=== PATIENT | female | born 1955 | race Caucasian/White ===

== ENCOUNTER 2017-09-24 19:01 | Inpatient (IN) | payer MEDICARE, MEDICAID ==
--- NOTE | 2017-09-24 19:47 | RAD ---
SINGLE VIEW OF THE CHEST 09/24/17 COMPARISON: 09/22/14 HISTORY: Acute onset of dyspnea and low oxygen saturation. FINDINGS: Single view of the chest shows a normal sized cardiomediastinal silhouette. Increased interstitial megan ng markings are present. There is superimposed air space opacities which appear to have developed sin ce the prior exam. No pleural effusion is seen. IMPRESSION: Chronic interstitial lung disease with superimposed air space opacities. This could represent edema o r an infectious process. POS: [facility]
[2017-09-24 19:51] LABS: #Eosinphils 0.2 thou/uL (0.0-0.7); #Lymphocytes 2.3 thou/uL (1.20-3.40); #Monocytes 0.3 thou/uL (0.11-0.59); #Neutrophils 8.2 thou/uL (1.40-6.50); %Basophils 0.4 % (0.0-1.0); %Eosinophils 1.7 % (0.0-10.0); %Lymphocytes 20.9 % (21.0-51.0); Hemoglobin 13.4 g/dL (12.0-16.0); Mean Corpuscular Hemoglobin 27.8 pg (27.0-31.0); Mean Corpuscular Volume 84.4 fl (81.0-99.0); Mean Platelet Volume 6.5 fL (7.4-10.4); Platelet Count 367 thou/uL (130-400); RBC Distribution Width 14.1 % (11.5-14.5); Red Blood Cell (RBC) Count 4.83 mill/uL (4.20-5.40); White Blood Cell (WBC) Count 11.1 thou/uL (4.8-10.8)
[2017-09-24 19:54] LABS: Bilirubin Negative (Negative); Blood, Urine Moderate (Negative); Clarity TURBID (Clear); Glucose, Urine (Dipstick) >=1000 mg/dL (Negative); Leukocyte Moderate (Negative); Nitrite Positive (Negative); Protein, Urine (Dipstick) 300 mg/dL (Neg-Trace); Specific Gravity, Urine 1.026 (1.002-1.036); Urobilinogen 0.2 mg/dL (0.2-1.0); pH, Urine 5.5 (5.0-9.0)
[2017-09-24 19:56] LABS: Bacteria/HPF 4+ HPF (None Seen); Hyaline Casts/LPF 4-6 HYALINE CAST LPF (0-3 Hyaline); Pathc Cast-AUWi Flag 1.14 (0-2.49); Squamous Epithelial 0-3 HPF (0-3)
[2017-09-24 19:58] LABS: Yeast-AUWi Flag 1560.6 (0-25.0)
[2017-09-24 20:03] LABS: CO2 Tension 39.3 mmHg (35.0-45.0); pH, Arterial 7.34 (7.35-7.45)
[2017-09-24 20:04] LABS: Actual Bicarbonate (HCO3a) 20.8 mEq/L (22-26); Base Excess (BEa) -4.5 mEq/L (0 (+/-) 2.5); Hematocrit-ABG 37.1 % (36.0-47.0); Hemoglobin (Hb) 11.1 g/dL (12.0-16.0)
[2017-09-24] MEDS ORDERED: Acetaminophen 500 MG TAB ONE (20:04)
[2017-09-24] MEDS ORDERED: Insulin Regular 300 UNITS/3 ML VIAL ONE ×2 (20:04→20:05)
[2017-09-24 20:05] LABS: Analyzer IN Cardio ER; Calcium, Ionized 1.2 mmol/L (1.12-1.30); Puncture Site RR
[2017-09-24 20:06] LABS: Yeast-All Forms 4+ HPF (None Seen)
[2017-09-24 20:12] LABS: ALT (SGPT) 17 U/L (8-55); AST (SGOT) 20 U/L (5-34); Albumin 3.4 g/dL (3.4-4.8); Alkaline Phosphatase 123 U/L (40-150); Anion Gap 22 mmol/L (10-20); BUN (Urea Nitrogen) 29 mg/dL (9.8-20.1); Bilirubin, Total 0.2 mg/dL (0.2-1.2); Calc. Creatinine Clearance 0 mL/min (70-130); Calcium 9.4 mg/dL (7.8-10.44); Carbon Dioxide 15 mmol/L (23-31); Chloride 102 mmol/L (98-107); Estimated GFR-MDRD 29; Globulin 4.8 g/dL (2.4-3.5); Glucose 423 mg/dL (80-115); Potassium 4.5 mmol/L (3.5-5.1); Protein, Total 8.2 g/dL (6.0-8.3); Sodium 134 mmol/L (136-145)
[2017-09-24 20:22] LABS: Troponin I 0.219 ng/mL (< 0.028)
[2017-09-24 20:26] LABS: CKMB 10.9 ng/mL (0-6.6)
[2017-09-24] MEDS ORDERED: Piperacillin/Tazobactam 4.5 GM in Sodium Chloride 0.9% 100 ML IVPB SCH (20:45)
[2017-09-24 23:01] LABS: Troponin I 1.878 ng/mL (< 0.028)
[2017-09-24] MEDS ORDERED: Enoxaparin Sodium 100 MG/ML SYRINGE ONE (23:02)
[2017-09-24 23:41] LABS: Lactic Acid 2.5 mmol/L (0.5-2.2)
[2017-09-25] MEDS ORDERED: Acetaminophen 325 MG TAB PO PRN ×3 (00:51→09:26)
[2017-09-25] MEDS ORDERED: Ondansetron HCl/PF 4 MG/2 ML Vial IVP PRN (00:51)
[2017-09-25] MEDS ORDERED: Ondansetron ODT 4 MG TAB SL PRN (00:51)
[2017-09-25 02:31] LABS: Troponin I 4.181 ng/mL (< 0.028)
[2017-09-25] MEDS ORDERED: Dextrose 5% in Water 1,000 ML IV PRN (09:20)
[2017-09-25] MEDS ORDERED: Dextrose 50% Abboject 50 ML SYRINGE IVP PRN (09:20)
[2017-09-25] MEDS ORDERED: Ketorolac Tromethamine 30 MG/ML VIAL IVP PRN (09:23)
[2017-09-25] MEDS ORDERED: Enoxaparin Sodium 100 MG/ML SYRINGE SC SCH (10:00)
[2017-09-25 10:37] LABS: Troponin I 4.059 ng/mL (< 0.028)
[2017-09-25] MEDS: cefTRIAXone\\ROCEPHIN 1 GM, Syringe 0.4 ML in Sterile Water 9.6 ML SLOW IVP SCH (10:44)
[2017-09-25] MEDS ORDERED: Gabapentin 300 MG CAP PO SCH (11:15)
--- NOTE | 2017-09-25 12:04 | HP ---
HANNAH Smyth dictating for Francisco J Lopez M.D. DATE OF ADMISSION: 09/25/2017 REASON FOR ADMISSION: Shortness of breath. HISTORY OF PRESENT ILLNESS: This is a pleasant 62-year-old female, who is a resident at [facility] with a 24-hour history of having increasing shortness of breath. She also had retrosternal ch est tightness with no associated nausea, vomiting, or diaphoresis. The nurse contacted me when she b sandy having tingling down her arms and hypoxia with O2 sat of 80, having promptly sent her to the [facility] room where she was found to have a possible pulmonary edema and elevated cardiac markers sugge stive of a MO. The patient was appropriately given Lovenox and placed on oxygen and given aspirin. She was also placed on BiPAP. Now, the patient is in CCU from overflow from [facility], and she is on oxyg en and appears to be hemodynamically stable, in no acute distress. She denies any chest, arm, or back pain. She also denies any PND, orthopnea, or palpitations. PAST MEDICAL HISTORY: 1. GERD. 2. Hypertension. 3. IDDM. 4. Hyperlipidemia. 5. Hypertriglyceridemia. 6. Osteoporosis. 7. Sciatica. 8. History of chronic urinary tract infection. 9. History of urosepsis. 10. History of DVT of the right thigh. 11. The patient was seen by Dr. New in 2017 where at that time she underwent a stress test that was unremarkable. She also had an echocardiogram at that time, which showed her EF was 60%-65% with mil d TR and trace MR. PAST SURGICAL HISTORY: 1. Nasal surgery in the past. 2. Status post hysterectomy. 3. Tubal ligation. 4. Osteoporotic fracture of the back. 5. Nasal surgery was for persistent epistaxis. ALLERGIES: CODEINE and HYDROCODONE. MEDICATIONS: Currently unknown. SOCIAL HISTORY: She does not smoke or drink alcohol. She lives in a fpc. FAMILY HISTORY: Noncontributory. REVIEW OF SYSTEMS: General: Admits to weakness and fatigue. No fever or chills. HEENT: No diplop ia, amaurosis fugax, tinnitus, sore throat, or hoarseness. Cardiovascular: See history of present i llness. Pulmonary: See present illness. Gastrointestinal: No GI bleed, constipation, diarrhea. G enitourinary: Does have dysuria, no nocturia, oliguria, or polyuria. Endocrine: No polyphagia, polydipsia, or heat or cold intolerance. Musculoskeletal: Admits to arth ralgias. No lupus or myopathy. Neurologic: No history of TIA or seizure. All systems are negative . PHYSICAL EXAMINATION GENERAL APPEARANCE: This is a pleasant female who appears to be in no acute distress. VITAL SIGNS: Her blood pressure is 130/70, pulse 80, respirations 20. She is afebrile. NECK: Supple with no increased JVP or carotid bruit. Carotid had good upstroke with no thyromegaly. COR: Regular rate and rhythm. CHEST: Symmetrical with a few crackles and wheezing. ABDOMEN: Soft, nontender with normoactive bowel sounds. No bruit or organomegaly. EXTREMITIES: Trace edema. She had palpable pedal pulses. SKIN: There is no evidence of ulcer, lesion, or rash. NEURO: She is awake, alert, and oriented to person, place, and time. LABORATORY DATA: Chest x-ray showed chronic interstitial lung disease with possible edema or infecti ous process. Her urine is positive for UTI. She was negative for flu. Her white blood cells 11.81, her H and H 13.4 and 40.8, her platelets is 367. Her first troponin was 1.878, her second was 4.181 . Her BNP was 117.8. Her blood sugar was 369. Her EKG showed ST abnormality. ASSESSMENT: 1. Elevated cardiac markers with abnormal EKG suggestive of myocardial infarction. 2. Urinary tract infection. 3. Possible pneumonia. 4. Chronic urinary tract infection. 5. Hypertension. 6. Diabetes. 7. Lupus. 8. Multiple medical problems. PLAN: 1. Cardiology has already been asked to see the patient in consultation. We will also repeat the ec hocardiogram. 2. We will keep n.p.o. 3. We will continue aspirin and Lovenox. 4. We will make sure urine C and S was done. 5. We will give Toradol x1 for pain. 6. We will continue Zofran and Tylenol. 7. We will check blood sugars a.c. and at bedtime and use sliding scale insulin per protocol. 8. We will begin Rocephin. 9. We will follow up with a CBC, CMP, and chest x-ray in the morning. The patient verbalized unders tanding and all questions answered to her satisfaction.
--- NOTE | 2017-09-25 12:24 | CON ---
DATE OF CONSULTATION: 09/25/2017 SERVICE: Pulmonary Medicine. REASON FOR CONSULTATION: Respiratory failure ICU patient. HISTORY OF PRESENT ILLNESS: The patient is a 62-year-old white female with past medical history significant for lupus and debility. She has osteoporosis and has multiple fractures associated with that, which keeps her nearly at bed- bound state. At baseline, she is able to walk around her room and uses a wheelchair for anything that is longer. In her usual state of health, she had a 1-day onset of increasing chest discomfort and shortness of breath. She specifically did not wake up with this in the middle of the night. She denies any orthopnea or paroxysmal nocturnal dyspnea. She was brought to the emergency department where she had a fever. She was identified as having an infiltrate in the lung. Antibiotics were initiated. She has been off ever since about 2 weeks ago when she had the flu. She was recovering from that slowly. She feels much improved since she has been here. In the Emergency Department, she was hypoxemic. She was placed on BiPAP but as soon as she got to the ICU, this was discontinued. She was placed on room air and she is maintaining her saturations beautifully. She appears to be cool, calm and collected. She is wide awake and has no apparent distress respiratory or otherwise. PAST MEDICAL HISTORY: 1. Lupus. 2. History of DVT of the right thigh. 3. Gastroesophageal reflux disease. 4. Hypertension. 5. Dyslipidemia. 6. Type 2 diabetes mellitus, insulin-dependent. 7. Osteoporosis. 8. Sciatic discomfort. PAST SURGICAL history: 1. Nasal surgery. 2. Hysterectomy. 3. Tubal ligation. SOCIAL HISTORY: Negative for alcohol, tobacco or illicit drug use. She currently lives in a nursing facility. She has no exposures to chemicals, dust asbestos or tuberculosis. FAMILY HISTORY: Noncontributory. ALLERGIES: CODEINE/HYDROCODONE makes her have nausea and vomiting. MEDICATIONS: List of inpatient medications were reviewed. Multiple updates were made at this time. REVIEW OF SYSTEMS: General, head, ears, eyes, nose, throat, cardiovascular, respiratory, GI, , musculoskeletal, neurologic and skin is negative except as mentioned in the HPI. PHYSICAL EXAMINATION: VITAL SIGNS: Afebrile, pulse 94, blood pressure 156/85, respirations 23, saturation 97% on room air. GENERAL: The patient is awake and alert, in no apparent distress. LUNGS: Decent air entry. There is no prolonged expiratory phase or wheezing present. Rhonchi are there, but cleared with cough. HEART: Normal rate, regular. ABDOMEN: Soft, nontender, nondistended. Bowel sounds are positive. MUSCULOSKELETAL: No cyanosis or clubbing. No pitting in the bilateral lower extremities. NEUROLOGIC: Grossly nonfocal. LABORATORY DATA: WBC 11.1, hemoglobin 13.4, platelets 367,000. PH of 7.34, pCO2 of 39, pO2 of 71. She is on 30% FiO2 at that time. Troponin has increased from 0.2 up to 4.2. Lactate is down trending to 2.5. Glucose is elevated in the 300s. BNP is marginally elevated. Creatinine is 1.74, which is slightly above baseline. BUN is 29. Basic metabolic profile is otherwise unremarkable. Liver function studies are negative. Urinalysis is consistent with possible urinary tract infection with positive leukocyte esterase and nitrites. Urine culture is growing E. coli. This has a resistance profile, but significant resistance profile that is sensitive to Zosyn and cephalosporins. Blood cultures x2 remain negative. Influenza A and B is currently negative. IMAGING: Chest x-ray demonstrates an interstitial disease with superimposed airspace opacities may represent edema versus other infectious process. I looked back at chest x-ray from 2015 and there were some subtle interstitial changes that were present at that time. In addition, there was slight hyperexpansion of the bilateral lung smith. ASSESSMENT: 1. Acute hypoxic respiratory failure. 2. Acute on chronic diastolic heart failure. 3. Healthcare-associated pneumonia, possible. 4. Interstitial lung disease, possible. 5. Non-ST elevation myocardial infarction. 6. Severe sepsis. 7. Urinary tract infection. 8. Obstructive sleep apnea, suspected. PLAN: We will diurese the patient until she returns to euvolemia. Empiric antibiotics are directed at healthcare associated pathogens. These will be continued until culture results come back. We will continue treating the urinary tract infection. At this point, the patient is stable for transition to the telemetry unit. Pulmonary Critical Care will continue to follow while patient remains in this location. In the outpatient setting, she will benefit from a sleep apnea evaluation. 70 minutes have been devoted to this patient in various activities. I personally reviewed all imaging studies and laboratory data noted within this document. For at least half of this time, I was interacting with the patient at the bedside or coordinating care with the care team. For the remainder of the time I was immediately available to the patient in the hospital unit. IRIS
[2017-09-25] MEDS ORDERED: Nitroglycerin 50 MG/250 ML BOT 250 ML ONE (12:37)
[2017-09-25] MEDS ORDERED: Nitroglycerin 50 MG/250 ML BOT 250 ML IVPB SCH (12:45)
[2017-09-25] MEDS: traMADol HCl 50 MG TAB PO PRN (14:21)
--- NOTE | 2017-09-25 15:16 | CON ---
DATE OF CONSULTATION: 09/25/2017 REASON FOR CONSULTATION: Elevated troponin. HISTORY OF PRESENT ILLNESS: Ms. Curtis is a very pleasant 62-year-old woman with no previous history of underlying coronary disease. She recently presented with acute onset shortness of breath. This o ccurred yesterday. She did state she had the flu several weeks ago. No chest pain or pressure noted . She does have a history of SLE over the last 6-7 years. She currently resides in [facility] due to a broken vertebra and rehabilitation. She has been there for the last 3 years. PAST MEDICAL HISTORY: As above including DVT, hypertension, hyperlipidemia, diabetes mellitus, osteo porosis, sciatica. PAST SURGICAL HISTORY: 1. Nasal surgery. 2. Hysterectomy and BTL. ALLERGIES: CODEINE, HYDROCODONE. SOCIAL HISTORY: No current tobacco or alcohol use. HOME MEDICATIONS: Trazodone, tramadol, tizanidine, metformin, glipizide, clonidine, quetiapine, psyl lium, ondansetron, [place]-3, multivitamin, gabapentin, folic acid, Nexium, and calcium. REVIEW OF SYSTEMS: Ten-point review of systems is reviewed and is as above negative. PHYSICAL EXAMINATION: GENERAL: Patient is a pleasant female who is in no acute distress. The patient appears her stated a ge. VITAL SIGNS: Blood pressure 187/82, pulse 92, temperature afebrile. NEUROLOGIC: The patient is alert and oriented times 3 with no focal neurologic deficits. HEENT: Sclerae without icterus. Mouth has moist mucous membranes with normal pallor. NECK: No JVD. Carotid upstroke brisk. No bruits bilaterally. LUNGS: Clear to auscultation with unlabored respirations. BACK: No scoliosis or kyphosis. CARDIAC: Regular rate and rhythm with normal S1 and S2. No S3 or S4 noted. No significant rubs, mu rmurs, thrills, or gallops noted throughout the precordium. PMI is not displaced. There is no fabio ternal heave. ABDOMEN: Soft, nontender, nondistended. No peritoneal signs present. No hepatosplenomegaly. No abnormal striae. EXTREMITIES: 2+ femoral and 2+ dorsalis pedis pulses. No cyanosis, clubbing, or edema. SKIN: No gross abnormalities. PERTINENT LABORATORY DATA: Hemoglobin 13.4, creatinine 4.059 and is down-trending. EKG: Normal sin us rhythm, nonspecific ST-T wave changes. IMPRESSION: 1. Non-Q myocardial infarction. 2. Acute onset of shortness of breath. 3. Systemic lupus erythematosus. RECOMMENDATIONS: Ms. Curtis's symptoms are certainly suggestive of unstable angina. Given her risk o f SLE and inflammatory disease, she is also at risk. I would therefore recommend coronary angiograph y and possible PCI. I discussed the procedure in full detail with Ms. Curtis. The risks included, bu t not limited. I discussed the procedure in full detail with the patient. The risks of the procedur e were also discussed. The risks of the procedure include but are not limited to the following: Destini th, stroke, [place], need for emergency surgery, loss of limb, bleeding, and infection, as well as a react ion to the dye causing kidney failure and needing long-term dialysis. I also discussed the risks of PCI to include all of the above including coronary dissection and perforation in addition to acute st ent thrombosis and restenosis. All questions about the procedure were answered. Given the above, th e patient agreed to proceed with coronary angiography and possible PCI. All questions were answered. I also discussed non-drug eluted stent placement. There are no contraindications to proceed if nee ded. Further recommendations pending the above. We will also treat blood pressure with IV nitroglyc timothy since she is currently in the unit..
[2017-09-25] MEDS: Gabapentin 300 MG CAP PO SCH ×2 (15:37→21:57)
[2017-09-25] MEDS: Ondansetron HCl/PF 4 MG/2 ML Vial SLOW IVP PRN (15:47)
[2017-09-25] MEDS ORDERED: Labetalol 100 MG/20 ML MDV SLOW IVP PRN (16:30)
[2017-09-25] MEDS: Insulin Regular 300 UNITS/3 ML VIAL SC PRN ×2 (16:50→21:02)
[2017-09-25] MEDS: Labetalol HCl 100 MG/20 ML VIAL SLOW IVP PRN ×7 (16:53→22:23)
[2017-09-25] MEDS ORDERED: Promethazine 25 MG TAB PO PRN (18:30)
[2017-09-25] MEDS ORDERED: Promethazine HCl 25 MG SUPP PR PRN (18:30)
[2017-09-25] MEDS: Enoxaparin Sodium 100 MG/ML SYRINGE SC SCH (20:48)
[2017-09-25] MEDS ORDERED: Vancomycin HCl 1 GM in Premix Bag 1 BAG IVPB SCH (21:00)
[2017-09-25] MEDS: traZODone HCl 50 MG TAB PO SCH (21:57)
[2017-09-26] MEDS: Labetalol HCl 100 MG/20 ML VIAL SLOW IVP PRN ×2 (06:02→08:55)
[2017-09-26 06:12] LABS: #Basophils 0.1 thou/uL (0.0-0.2); #Eosinphils 0.2 thou/uL (0.0-0.7); #Lymphocytes 2.6 thou/uL (1.20-3.40); #Monocytes 0.6 thou/uL (0.11-0.59); #Neutrophils 5.1 thou/uL (1.40-6.50); %Basophils 0.9 % (0.0-1.0); %Eosinophils 2.6 % (0.0-10.0); %Lymphocytes 30.1 % (21.0-51.0); %Monocytes 6.6 % (0.0-10.0); %Neutrophils 59.8 % (42.0-75.0); Hemoglobin 9.3 g/dL (12.0-16.0); Mean Corpuscular HGB CONC 31.4 g/dL (32.0-36.0); Mean Corpuscular Hemoglobin 26.6 pg (27.0-31.0); Mean Corpuscular Volume 84.6 fl (81.0-99.0); Mean Platelet Volume 6.5 fL (7.4-10.4); Platelet Count 293 thou/uL (130-400); RBC Distribution Width 13.9 % (11.5-14.5); Red Blood Cell (RBC) Count 3.51 mill/uL (4.20-5.40); White Blood Cell (WBC) Count 8.5 thou/uL (4.8-10.8)
[2017-09-26 06:24] LABS: Hemoglobin A1c 7.3 % (4.0-6.0)
[2017-09-26 06:31] LABS: ALT (SGPT) 15 U/L (8-55); AST (SGOT) 20 U/L (5-34); Albumin 3.1 g/dL (3.4-4.8); Alkaline Phosphatase 101 U/L (40-150); Anion Gap 13 mmol/L (10-20); BUN (Urea Nitrogen) 27 mg/dL (9.8-20.1); Bilirubin, Total 0.4 mg/dL (0.2-1.2); Calc. Creatinine Clearance 52 mL/min (70-130); Carbon Dioxide 26 mmol/L (23-31); Chloride 102 mmol/L (98-107); Estimated GFR-MDRD 33; Globulin 3.9 g/dL (2.4-3.5); Glucose 242 mg/dL (80-115); Potassium 4.6 mmol/L (3.5-5.1); Sodium 136 mmol/L (136-145)
[2017-09-26] MEDS ORDERED: Midazolam HCl 2 mg/2 ml Vial ONE (07:28)
[2017-09-26] MEDS ORDERED: Fentanyl 100 MCG/2 ML VIAL ONE ×2 (07:28→10:45)
[2017-09-26] MEDS ORDERED: hydrALAZINE 20 MG/ML VIAL ONE (07:38)
[2017-09-26] MEDS ORDERED: Nitroglycerin 4.9 GM Bottle ONE (07:38)
[2017-09-26] MEDS ORDERED: Metoprolol Tartrate 5 MG/5 ML VIAL ONE (07:51)
--- NOTE | 2017-09-26 07:55 | RAD ---
PORTABLE AP CHEST: Date: 09/26/17 HISTORY: Pneumonia. COMPARISON: 05/01/13. FINDINGS: Cardiac silhouette is magnified by projection. Pulmonary vasculature is within normal limits. Lungs a ppear clear. There is mild right convex curvature of the thoracic spine. The nodular density left julio cesar g apex seen on prior study is not definitely seen on this exam. No other interval change. IMPRESSION: No acute cardiopulmonary process. POS: [facility]
[2017-09-26] MEDS ORDERED: Heparin 10,000 UNITS/1 ML VIAL ONE (07:58)
[2017-09-26] MEDS ORDERED: Mag-Al 1200 mg/1200 mg/30 ML UDCUP PO PRN ×2 (07:59→18:52)
[2017-09-26] MEDS ORDERED: Milk Of Magnesia 30 ML UDCUP PO PRN (07:59)
[2017-09-26] MEDS: Gabapentin 300 MG CAP PO SCH ×3 (08:53→20:07)
[2017-09-26] MEDS: Sodium Chloride 0.9% 1,000 ML IV SCH ×3 (08:56→19:24)
[2017-09-26] MEDS: Enoxaparin Sodium 100 MG/ML SYRINGE SC SCH (08:56)
[2017-09-26] MEDS ORDERED: DULoxetine 60 MG CAP PO SCH (09:00)
[2017-09-26] MEDS ORDERED: Aspirin 325 MG TAB PO SCH (09:00)
[2017-09-26] MEDS ORDERED: Heparin 25,000 units/D5W 500 ML IV SCH (09:15)
[2017-09-26] MEDS ORDERED: Heparin 10,000 UNITS/ 10 ML VIAL SLOW IVP SCH (09:15)
[2017-09-26] MEDS ORDERED: Morphine 2 MG/ML SYRINGE SLOW IVP PRN (09:37)
[2017-09-26 09:39] LABS: PTT Greater than 250.0 SEC (22.9-36.1)
[2017-09-26 09:46] LABS: INR-International Normal Ratio 1.2; Prothrombin Time 15.4 SEC (12.0-14.7)
[2017-09-26] MEDS: Lorazepam 2 MG/ML VIAL SLOW IVP PRN ×2 (09:47→13:25)
[2017-09-26] MEDS: Insulin Regular 300 UNITS/3 ML VIAL SC PRN (09:52)
[2017-09-26] MEDS: cefTRIAXone\\ROCEPHIN 1 GM, Syringe 0.4 ML in Sterile Water 9.6 ML SLOW IVP SCH (10:23)
[2017-09-26] MEDS ORDERED: Labetalol HCl 100 MG/20 ML VIAL SLOW IVP SCH (10:30)
[2017-09-26] MEDS ORDERED: cloNIDine 0.2 MG TAB PO SCH (10:36)
[2017-09-26] MEDS: Ondansetron HCl/PF 4 MG/2 ML Vial SLOW IVP PRN (10:45)
[2017-09-26] MEDS ORDERED: Midazolam HCl 5 mg/5 ml Vial ONE (10:45)
[2017-09-26] MEDS ORDERED: Vecuronium 10 MG VIAL ONE ×3 (10:46→15:33)
[2017-09-26] MEDS ORDERED: Dexmedetomidine 200 MCG/2 ML VIAL ONE (10:47)
[2017-09-26] MEDS ORDERED: Iopamidol 370 76% 100 ML VIAL ONE (11:33)
--- NOTE | 2017-09-26 11:35 | PRG ---
DATE OF SERVICE: 09/26/2017 SERVICE: Pulmonary Medicine INTERVAL HISTORY: Overnight, the patient had some hypertensive issues. She was put on a nitro drip and then had significant headache that went along with that. Otherwise, there were no significant ev ents. She went down for cardiac catheterization today and was found to have severe coronary artery d isease. The flow limiting lesion could not be adequately identified. As such, she is scheduled to g o for coronary bypass graft later today. Otherwise, there have been no other events. PHYSICAL EXAMINATION: VITAL SIGNS: Afebrile, pulse 78, blood pressure 197/89, respirations 12, saturation 99% on room air. GENERAL: The patient is awake, alert, in no apparent distress. LUNGS: Decent air entry. There is no prolonged expiratory phase or wheezing. No crackles are prese nt. HEART: Normal rate, regular. ABDOMEN: Soft, nontender, nondistended. Bowel sounds are positive. MUSCULOSKELETAL: No cyanosis or clubbing. No pitting in the bilateral lower extremities. NEUROLOGIC: Grossly nonfocal. LABORATORY DATA: WBC 8.5, hemoglobin 9.3, platelets 293,000. INR 1.2. Creatinine 1.6 and gently do wn trending. BUN 27. Basic metabolic profile is otherwise unremarkable. Hemoglobin A1c is 7.3. Ur ine culture is growing gram negative lauren. Influenza A and B are negative. Blood cultures remain ne gative to date. IMAGING: Chest x-ray demonstrates no acute cardiopulmonary abnormality. ASSESSMENT: 1. Acute on chronic hypoxic respiratory failure. 2. Acute on chronic diastolic heart failure. 3. Severe sepsis. 4. Urinary tract infection. 5. Non-ST elevation myocardial infarction. 6. Coronary artery disease, severe. 7. Obstructive sleep apnea, suspected. DISCUSSION AND PLAN: The patient will go down for coronary bypass graft today. We will continue our empiric antibiotics, but neuro spectrum to cover organisms. Dr. Boles will follow up after the CA BG.
[2017-09-26 11:46] LABS: PTT Greater than 200.0 SEC (22.9-36.1)
--- NOTE | 2017-09-26 12:38 | CON ---
DATE OF CONSULTATION: 09/26/2017 HISTORY OF PRESENT ILLNESS: This is a 62-year-old female, who resides at [facility]. Zain myles presented with dyspnea and chest discomfort and was found to be in pulmonary edema. She had a bump in her troponins to about 4 and has had improvement in her pulmonary edema. She underwent cardiac c atheterization today demonstrating essentially a normal right coronary system with high grade lesions in her LAD, diagonal, and two obtuse marginal branches. She also has some distal LAD disease. PAST MEDICAL HISTORY: Positive for diabetes mellitus, hypertension, and dyslipidemia. She also has a history of osteoporosis and L3 lumbar fracture with sciatic, which ultimately led to her being in a care home. She states she had surgery on her back, which resulted in paralysis; however, I canno t access any records to suggest that she did actually have surgery on her back. Chronic UTIs and his tory of DVT in the right leg for which she was on anticoagulation for a short period of time. PAST SURGICAL HISTORY: Otherwise of hysterectomy and nose surgery related to epistaxis. SOCIAL HISTORY: She is a nonsmoker. She drank socially prior to going in the care home about 3 y ears ago. Family includes a son who works in the [place] area. MEDICATIONS: Include trazodone, tramadol, tizanidine, metformin, glipizide, clonidine, VESIcare, Ser oquel, MiraLax, gabapentin, Nexium, and Cymbalta. ALLERGIES: CODEINE, which makes her nauseated. PHYSICAL EXAMINATION: GENERAL: Alert, cooperative lady, who appears her stated age with a recorded height of 5 feet 7 inch es and recorded weight of 197 pounds. VITAL SIGNS: Blood pressure is 160, heart rate is 70. NECK: No carotid bruits. LUNGS: Clear to auscultation. CARDIAC: Distant heart sounds. No murmurs. ABDOMEN: Obese, nontender. EXTREMITIES: She has no peripheral edema and has palpable pedal pulses bilaterally. ASSESSMENT AND PLAN: At this time, the patient presents with pulmonary edema, perhaps some fever wit h a urinary tract infection and gram-negative lauren. She has severe coronary artery disease involving her left anterior descending and circumflex systems and would benefit from 4-vessel bypass grafting t o the left anterior descending, diagonal and two obtuse marginal vessels. Unfortunately, her living in the care home and not being able to ambulate except with a walker for short distances, this cer tainly will impede her recovery; however, she is not a candidate for stenting. She wishes to pursue coronary artery bypass grafting and I have spoken with her son on the phone and will proceed with rosalina rehman today.
[2017-09-26] MEDS ORDERED: Heparin 10,000 UNITS/1 ML VIAL 30,000 UNITS, Admixture Fee 1 EACH in Sodium Chloride 0.... IVPB SCH (13:30)
[2017-09-26] MEDS ORDERED: Insulin Regular 300 UNITS/3 ML VIAL ONE (13:34)
[2017-09-26] MEDS ORDERED: Albumin 5% 500 ML ONE (13:52)
[2017-09-26] MEDS ORDERED: DOPamine 400 MG/10 ML VIAL ONE (15:33)
[2017-09-26] MEDS ORDERED: Papaverine 60 MG/2 ML VIAL ONE (15:33)
[2017-09-26] MEDS ORDERED: Magnesium 5 GM/10 ML VIAL ONE (15:33)
[2017-09-26] MEDS ORDERED: Cardioplegic Soln 1,000 ML BAG ONE (15:33)
[2017-09-26] MEDS ORDERED: Thrombin 5000 UNITS/5 ML VIAL ONE (15:33)
[2017-09-26] MEDS ORDERED: Lidocaine 1% PF 5 ML VIAL ONE (15:33)
[2017-09-26] MEDS ORDERED: Protamine Sulfate 250 MG/25 ML VIAL ONE (15:33)
[2017-09-26] MEDS ORDERED: Sodium Bicarb 50 MEQ/50 ML VIAL ONE (15:33)
[2017-09-26] MEDS ORDERED: Lidocaine 2% PF 100 mg/5 ml Syringe ONE (15:33)
[2017-09-26] MEDS ORDERED: Nitroglycerin 50 MG/250 ML BOT ONE (15:33)
[2017-09-26] MEDS ORDERED: PHENYLEPHRINE-NS 100 MCG/ML 10 ML SYRINGE ONE (15:33)
[2017-09-26] MEDS ORDERED: Potassium Chloride 60 MEQ/30 ML VIAL ONE (15:33)
[2017-09-26] MEDS ORDERED: Calcium Chloride 1 GM/10 ML Abboject SYRINGE ONE (15:33)
[2017-09-26] MEDS ORDERED: Aminocaproic Acid 5 GM/20 ML VIAL ONE (15:33)
[2017-09-26] MEDS ORDERED: Heparin 5,000 UNITS/ML VIAL ONE (15:33)
[2017-09-26] MEDS ORDERED: Heparin 30,000 units/30 ml VIAL ONE (15:33)
[2017-09-26] MEDS ORDERED: Guaifenesin DM 100-10/5 ML UDCUP PO PRN (18:52)
[2017-09-26] MEDS ORDERED: HYDROcodone/Acetaminophen 5/325 mg Tablet PO PRN (18:52)
[2017-09-26] MEDS ORDERED: Bisacodyl 5 MG TAB PO PRN (18:52)
[2017-09-26] MEDS ORDERED: Hetastarch 6% 500 ML 500 ML IVPB PRN (18:52)
[2017-09-26] MEDS ORDERED: Potassium Chloride 20 MEQ/100 ML PREMIX BAG IVPB PRN (18:52)
[2017-09-26] MEDS ORDERED: DOPamine 400 MG/D5W 250 ML 250 ML IVPB PRN (18:52)
[2017-09-26] MEDS ORDERED: hydrALAZINE 20 MG/ML VIAL SLOW IVP PRN (18:52)
[2017-09-26] MEDS ORDERED: Norepinephrine 8 MG/0.9% NS 250 ML IVPB PRN (18:52)
[2017-09-26] MEDS ORDERED: Fentanyl 100 MCG/2 ML VIAL SLOW IVP PRN (18:52)
[2017-09-26] MEDS ORDERED: Post-Op Insulin Drip Protocol IVPB ONE (18:52)
[2017-09-26] MEDS ORDERED: Bisacodyl 10 MG SUPP PR PRN (18:52)
[2017-09-26] MEDS ORDERED: Acetaminophen 325 MG TAB PO PRN (18:52)
[2017-09-26] MEDS ORDERED: Phenylephrine 10 MG/NS 250 ML 250 ML IVPB PRN (18:52)
[2017-09-26] MEDS ORDERED: Promethazine HCl 25 MG/ML VIAL IM PRN (18:52)
[2017-09-26] MEDS ORDERED: niCARdipine HCl 25 MG in Sodium Chloride 0.9% 250 ML 240 ML IVPB PRN (18:52)
[2017-09-26] MEDS ORDERED: Dextrose 5% in Water 1,000 ML IV PRN (19:03)
[2017-09-26] MEDS ORDERED: Dextrose 50% Abboject 50 ML SYRINGE SLOW IVP PRN (19:03)
[2017-09-26 19:07] LABS: #Eosinphils 0.2 thou/uL (0.0-0.7); #Neutrophils 15.9 thou/uL (1.40-6.50); %Basophils 0.2 % (0.0-1.0); %Eosinophils 0.9 % (0.0-10.0); %Lymphocytes 10.5 % (21.0-51.0); %Monocytes 5.3 % (0.0-10.0); %Neutrophils 83.2 % (42.0-75.0); Hemoglobin 9.6 g/dL (12.0-16.0); Mean Corpuscular Hemoglobin 29.1 pg (27.0-31.0); Mean Corpuscular Volume 88.2 fl (81.0-99.0); Mean Platelet Volume 6.6 fL (7.4-10.4); Platelet Count 297 thou/uL (130-400); RBC Distribution Width 14.6 % (11.5-14.5); White Blood Cell (WBC) Count 19.1 thou/uL (4.8-10.8)
[2017-09-26 19:10] LABS: INR-International Normal Ratio 1.2; Prothrombin Time 15.5 SEC (12.0-14.7)
[2017-09-26 19:11] LABS: PTT 48.1 SEC (22.9-36.1)
[2017-09-26] MEDS ORDERED: Magnesium 2 GM/NS 0.9% 100 ML 2 GM in Premix Bag 1 BAG IVPB SCH (19:15)
[2017-09-26 19:21] LABS: Anion Gap 13 mmol/L (10-20); BUN (Urea Nitrogen) 24 mg/dL (9.8-20.1); Calc. Creatinine Clearance 55 mL/min (70-130); Calcium 8.1 mg/dL (7.8-10.44); Carbon Dioxide 21 mmol/L (23-31); Chloride 111 mmol/L (98-107); Estimated GFR-MDRD 34; Glucose 159 mg/dL (80-115); Potassium 4.8 mmol/L (3.5-5.1); Sodium 140 mmol/L (136-145)
[2017-09-26 19:23] LABS: Actual Bicarbonate (HCO3a) 21.9 mEq/L (22-26); Analyzer IN Cardio OR; Base Excess (BEa) -3.8 mEq/L (0 (+/-) 2.5); CO2 Tension 42.5 mmHg (35.0-45.0); Calcium, Ionized 1.1 mmol/L (1.12-1.30); Hematocrit-ABG 28.2 % (36.0-47.0); Hemoglobin (Hb) 9.5 g/dL (12.0-16.0); O2 Tension (PaO2) 122.2 mmHg (80.0-100.0); Puncture Site LINE; pH, Arterial 7.33 (7.35-7.45)
[2017-09-26 19:24] LABS: ALV-art Gradient 181.175 (0-20)
[2017-09-26] MEDS: traZODone HCl 50 MG TAB PO SCH (20:07)
[2017-09-26] MEDS: Famotidine/PF 20 mg/2ml Vial SLOW IVP SCH (20:09)
--- NOTE | 2017-09-26 20:17 | RAD ---
PORTABLE CHEST: History: Post op sternotomy. Comparison: Pre op film taken 5:18 a.m. 09-26-17 FINDINGS/IMPRESSION: Post op sternotomy changes are now noted. ET tube is in adequate position above the ailyn. Central l ine is in good position overlying the SVC. Drainage tubes are noted. There is left basilar atelectasi s and mild right midlung atelectasis. The lungs are otherwise well aerated. POS: [facility]
[2017-09-26] MEDS: Fentanyl 100 MCG/2 ML VIAL SLOW IVP PRN (22:03)
[2017-09-26] MEDS: niCARdipine HCl 50 MG in Sodium Chloride 0.9% 250 ML 230 ML IVPB PRN (22:06)
--- NOTE | 2017-09-26 23:12 | OP ---
PREOPERATIVE DIAGNOSIS: Severe coronary artery disease with [id number] myocardial infarction. POSTOPERATIVE DIAGNOSIS: Severe coronary artery disease with [id number] myocardial infarction. PROCEDURES: Coronary bypass graft x5, left internal mammary artery, good quality as a sequential gra ft to the mid and distal left anterior descending with mid left anterior descending being about 1.5-2 mm and the distal left anterior descending mapping about 1-1.25 mm, saphenous vein, good quality, to 1.25-mm diagonal, 1.5-mm OM1, and 1.5-mm distal OM. SURGEON: Abbe Gorman MD PRESSURE SUPERVISOR: Garrett Webster MD PROCEDURE IN DETAIL: After adequate anesthesia had been obtained, the patient was prepped and draped . Dr. Webster did an endovascular vein harvest to the left greater saphenous vein while I perfor med a median sternotomy. Right pleura was entered in one small area. Left internal mammary artery w as harvested, dividing the mammary distally after heparinization. It was passed up posterior to the thymus gland through an incision in the pericardium. Aorta and right atrium were cannulated and card iopulmonary bypass was instituted. Vessels were inspected for grafting and the heart was somewhat en larged and thickened. Aorta was cross-clamped and 1000 mL of [place] cardioplegic solution was then given. Following this, the obtuse marginal 2, obtuse marginal 1, and diagonal were each opened and end-to-side anastomosis was completed. Following this, attention was turned to the left anterior lenin cending which was opened in its mid portion and a jgyn-sl-wkhi anastomosis performed between the mamm cecy and the left anterior descending. Following completion of this, the left anterior descending was opened distal to a palpable plaque and an end-to-side anastomosis completed with the mammary artery. Cross clamp was removed and the partial occluding clamp placed, and 2 proximal anastomoses were per formed on the aortic root. Distal anastomoses were then inspected and a single suture was required a nd the side of the OM2 distal anastomoses. The patient was then weaned from cardiopulmonary bypass, cannulas were removed, and protamine given systemically. There was obviously some bleeding still pre sent, then heart was elevated, and the distal tip of the diagonal anastomosis was bleeding and a sutu re was placed here. Following this, mediastinal and bilateral pleural drains were placed. Aortic an d atrial cannulation sites were secured with 4-0 Prolene suture. Following this, the sternum was chrissie pproximated with #7 interrupted wire using vancomycin paste on the sternal edges, platelet-enriched b lood, and platelet-poor plasma. Subcutaneous tissue and skin were closed in layers and the patient i s to be taken to the ICU in guarded condition.
[2017-09-27 00:45] LABS: Hemoglobin 10.8 g/dL (12.0-16.0)
[2017-09-27] MEDS: niCARdipine HCl 50 MG in Sodium Chloride 0.9% 250 ML 230 ML IVPB PRN ×3 (00:47→16:10)
[2017-09-27 00:51] LABS: Potassium 4.5 mmol/L (3.5-5.1)
[2017-09-27] MEDS: Ondansetron HCl/PF 4 MG/2 ML Vial IVP PRN ×2 (01:15→16:14)
[2017-09-27] MEDS: Fentanyl 100 MCG/2 ML VIAL SLOW IVP PRN (03:59)
[2017-09-27 04:29] LABS: #Lymphocytes 1.3 thou/uL (1.20-3.40); #Monocytes 0.7 thou/uL (0.11-0.59); #Neutrophils 13.3 thou/uL (1.40-6.50); %Basophils 0.2 % (0.0-1.0); %Eosinophils 0.1 % (0.0-10.0); %Lymphocytes 8.5 % (21.0-51.0); %Monocytes 4.3 % (0.0-10.0); %Neutrophils 86.9 % (42.0-75.0); Hemoglobin 10.3 g/dL (12.0-16.0); Mean Corpuscular HGB CONC 32.8 g/dL (32.0-36.0); Mean Corpuscular Hemoglobin 29.1 pg (27.0-31.0); Mean Corpuscular Volume 88.6 fl (81.0-99.0); Mean Platelet Volume 6.5 fL (7.4-10.4); Platelet Count 272 thou/uL (130-400); RBC Distribution Width 14.5 % (11.5-14.5); Red Blood Cell (RBC) Count 3.55 mill/uL (4.20-5.40); White Blood Cell (WBC) Count 15.3 thou/uL (4.8-10.8)
[2017-09-27] MEDS: Sodium Chloride 0.9% 1,000 ML IV SCH ×2 (04:52→15:01)
[2017-09-27 05:09] LABS: Anion Gap 11 mmol/L (10-20); BUN (Urea Nitrogen) 29 mg/dL (9.8-20.1); Calc. Creatinine Clearance 52 mL/min (70-130); Carbon Dioxide 20 mmol/L (23-31); Chloride 114 mmol/L (98-107); Estimated GFR-MDRD 31; Glucose 117 mg/dL (80-115); Potassium 4.4 mmol/L (3.5-5.1); Sodium 141 mmol/L (136-145)
--- NOTE | 2017-09-27 06:33 | EKG ---
Test Reason : POST CATH/PREOP CABG Blood Pressure : / mmHG Vent. Rate : 079 BPM Atrial Rate : 079 BPM P-R Int : 146 ms QRS Dur : 084 ms QT Int : 446 ms P-R-T Axes : 071 034 128 degrees QTc Int : 511 ms Normal sinus rhythm Prolonged QT Abnormal ECG When compared with ECG of 25-SEP-2017 12:23, (Unconfirmed) Nonspecific T wave abnormality no longer evident in Inferior leads T-wave inversion in V2 to V6 more prominent. Confirmed by SHEELA THOMAS ([id number]) on 09/27/2017 6:33:30 AM Referred By: SHAHLA Confirmed By:SHEELA THOMAS
--- NOTE | 2017-09-27 08:36 | PRG ---
DATE OF SERVICE: 09/27/2017 The patient is intubated on the ventilator. She is sedated. She is on an insulin drip, she is on IV fluids. PHYSICAL EXAMINATION: VITAL SIGNS: Blood pressure is good at 120/70, pulse 90, respirations 18. She is afebrile. NECK: Supple. JVD cannot be assessed. COR: Regular rate and rhythm. CHEST: Symmetrical. Clear to auscultation and percussion. ABDOMEN: Hypoactive bowel sounds. EXTREMITIES: No edema. NEUROLOGIC: She is sedated. LABORATORY DATA: Showed white blood cell 15.3, H&H 10.3 and 31.5, 272 platelets. Her blood sugar is 154. ASSESSMENT: 1. Status post myocardial infarction with postop bypass x5. 2. Lupus. 3. Anxiety. 4. Hypertension. 5. Diabetes. 6. Multiple medical problems. PLAN: I appreciate all the consultants' great help of this is a pleasant 62-year-old female. Hopefu lly the patient will be weaned soon and we can start rehabilitation. We will follow up with lab in t morning.
--- NOTE | 2017-09-27 08:48 | RAD ---
RADIOGRAPH CHEST 1 VIEW: Date: 09-27-17 Time: 5:00 a.m. HISTORY: 62-year-old female status post open heart surgery. COMPARISON: 09-26-17 at 6:51 p.m. FINDINGS: Left basilar, midline, and right paramedian chest tubes remain. Endotracheal tube and right subclavia n central line remain. Slight interval worsening of consolidation of left lower lobe. Left upper lobe relatively clear. No pneumothorax. Prominent interstitial markings throughout the right lung appears worse, perhaps due to technical and positional differences. No other interval change. No pneumothora x identified. IMPRESSION: Interval worsening of aeration of the left lower lobe. DENNY POS: DIANE
[2017-09-27] MEDS ORDERED: Aspirin 325 MG TAB PO SCH (09:00)
[2017-09-27] MEDS: cefTRIAXone\\ROCEPHIN 1 GM, Syringe 0.4 ML in Sterile Water 9.6 ML SLOW IVP SCH (09:20)
[2017-09-27] MEDS: Famotidine/PF 20 mg/2ml Vial SLOW IVP SCH ×2 (09:21→19:48)
[2017-09-27] MEDS: DULoxetine 30 MG CAP PO SCH (09:21)
[2017-09-27] MEDS: Gabapentin 300 MG CAP PO SCH ×3 (09:21→19:48)
--- NOTE | 2017-09-27 11:16 | PRG ---
DATE OF SERVICE: 09/27/2017 SERVICE: Pulmonary Medicine. INTERVAL HISTORY: The patient is doing okay from a respiratory standpoint. She has been weaned down at 27% FiO2 and has a PEEP of 5. That being said, she has really struggled to wake up from some of her anesthesia. Since yesterday, she has required absolutely no sedating medications. We have put h er on a spontaneous breathing trial this morning, and after 15 minutes, she started to struggle and t ook smaller breaths. We will continue trying this throughout the day and see if we can get her off o f mechanical ventilation. The largest breath that she could give me on pressure support of 5/5 was o nly 600 mL of tidal volume. She demonstrates fairly significant weakness, which we are going to have to silva. Otherwise, there were no events overnight, and she has no complaints of chest pain, naus ea, vomiting, or difficulty breathing when she is on a backup rate. PHYSICAL EXAMINATION: VITAL SIGNS: Afebrile, pulse 100, blood pressure 132/59, respirations 17, saturation 94% on 27% FiO2 and a PEEP of 5. GENERAL: Patient is awake, alert, in no apparent distress. LUNGS: Decent air entry. There are no crackles. No prolonged expiratory phase or wheezing is appre ciated. HEART: Normal rate, regular. ABDOMEN: Soft, nontender, nondistended. Bowel sounds are positive. MUSCULOSKELETAL: No cyanosis or clubbing. There is no pitting in the bilateral lower extremities. NEUROLOGIC: Grossly nonfocal. LABORATORY DATA: WBC 15.3, hemoglobin 10.3, platelets 272,000. Neutrophil percentage is 87. INR 1. 2. pH 7.33, pCO2 of 42, PO2 of 122 on 50% FiO2 at that time. Creatinine 1.67 and roughly stable cur rently. Chloride 114. Sodium 141. Basic metabolic profile is otherwise unremarkable. Urine cultur e is growing E. coli, which demonstrates sensitivity to cephalosporins. Influenza A and B and blood cultures are unremarkable. IMAGING: Chest x-ray demonstrates a stable chest. Sternotomy wires are present. There is a right s ubclavian central venous catheter that terminates in good position. Endotracheal tube is roughly 4 c m above ailyn. Thoracostomy drain on the left is present. Retrocardiac space is more dense suggest geremias of pleural parenchymal abnormality there. ASSESSMENT: 1. Acute on chronic hypoxic respiratory failure. 2. Acute on chronic diastolic heart failure. 3. Non-ST elevation myocardial infarction. 4. Coronary artery disease, severe postoperative day #1 from coronary artery bypass graft x5 vessels . 5. Severe sepsis. 6. Urinary tract infection. 7. Obstructive sleep apnea, suspected DISCUSSION AND PLAN: We will continue episodes of spontaneous breathing trials. Once she meets em cai, extubation will be considered. If she fails to wean from the mechanical ventilation today, lik maranda proceed with bronchoscopy to make certain the left lower lobe is devoid of any debris that could be limiting us. Supportive care including antibiotics and nebulized medications will be continued. Critical care time: 30 minutes.
[2017-09-27 13:14] VITALS: BMI 32.3
[2017-09-27] MEDS: traMADol HCl 50 MG TAB PO PRN (15:46)
--- NOTE | 2017-09-27 16:21 | PQF ---
CLINICAL DOCUMENTATION IMPROVEMENT CLARIFICATION FORM: ICD-10 Updated PLEASE DO AN ADDENDUM TO THE PROGRESS NOTE WITH ANY DOCUMENTATION UPDATES OR ADDITIONS AND CARRY THROUGH TO DC SUMMARY. THANK YOU. DATE: 09/27/17 ATTN: Dr. Lopez 09/28/17 09/30/17 Please exercise your independent, professional judgment in responding to the clarification form. Clinical indicators are provided on the bottom of this form for your review Please check appropriate box(es): [ x] Sepsis due to: (Pna, UTI, gangrenous gall bladder, etc.) uti [ ] Severe sepsis with acute organ dysfunction of: (Examples: respiratory failure, encephalopathy, acute kidney failure, other) [ ] Localized infection without sepsis [ ] Other diagnosis [ ] Unable to determine In addition, please specify: Present on Admission (POA): [ ] Yes [ ] No [ ] Unable to determine For continuity of documentation, please document condition throughout progress notes and discharge summary. Thank You. CLINICAL INDICATORS - SIGNS / SYMPTOMS / LABS ER RECORD: BP 147/122, PULSE 144, RESP 28, O2 SAT 99 ON BIPAP; TEMP 100.9 RECTAL DX: ST SEGMENT DEPRESSION. ELEVATED TROPONIN, FEVER, PNEUMONIA SEPSIS, UTI LAB: 09/24/17: LACTIC ACID LEVEL 5.8 H&P: HYPOXIA WITH O2 SAT OF 80 PULMONOLOGY CONSULT: WBC 11.1 LACTATE IS DOWN TRENDING TO 2.5. URINE CULTURE IS GROWING E COLI ASSESSMENT: ACUTE ON CHRONIC HYPOXIC RESPIRATORY FAILURE. NON-STEMI SEVERE SEPSIS RISKS: H&P: RESIDENT AT [facility]. UTI. HYPERTENSION. DIABETES, LUPUS TREATMENT: CPOE 09/25/17: ROCEPHIN 1 GM IV Q 24 HRS Thank you, Lita (This form is maintained as a part of the permanent medical record) 2014 [employer] All Rights Reserved Lita Kaba RN, BSN [email or web address] Office: [phone] [facility]
[2017-09-27] MEDS ORDERED: Sodium Chloride 0.9% 1,000 ML IV SCH (16:43)
[2017-09-27] MEDS ORDERED: Insulin Detemir 100 UNITS/ML 9 UNITS in Pre-Filled Syringe 1 EACH SC SCH (17:15)
[2017-09-27] MEDS ORDERED: glipiZIDE 5 MG TAB PO SCH (19:00)
[2017-09-27] MEDS: HYDROcodone/Acetaminophen 5/325 mg Tablet PO PRN (19:48)
[2017-09-27] MEDS: traZODone HCl 50 MG TAB PO SCH (19:48)
[2017-09-27] MEDS: Insulin Regular 300 UNITS/3 ML VIAL SC PRN (19:49)
[2017-09-27] MEDS ORDERED: Metoprolol Tartrate 50 MG TAB PO SCH (21:00)
--- NOTE | 2017-09-27 21:16 | EKG ---
Test Reason : Blood Pressure : / mmHG Vent. Rate : 095 BPM Atrial Rate : 095 BPM P-R Int : 138 ms QRS Dur : 092 ms QT Int : 438 ms P-R-T Axes : 077 -21 132 degrees QTc Int : 550 ms Normal sinus rhythm Prolonged QT Abnormal ECG When compared with ECG of 26-SEP-2017 09:07, T wave inversion less evident in Lateral leads Confirmed by SHEELA THOMAS ([id number]) on 09/27/2017 9:16:08 PM Referred By: Confirmed By:SHEELA THOMAS
[2017-09-28] MEDS: Insulin Regular 300 UNITS/3 ML VIAL SC PRN ×4 (00:17→16:01)
[2017-09-28] MEDS: HYDROcodone/Acetaminophen 5/325 mg Tablet PO PRN (04:03)
[2017-09-28 04:43] LABS: #Basophils 0.1 thou/uL (0.0-0.2); #Eosinphils 0.1 thou/uL (0.0-0.7); #Lymphocytes 3.1 thou/uL (1.20-3.40); #Monocytes 0.9 thou/uL (0.11-0.59); #Neutrophils 8.1 thou/uL (1.40-6.50); %Basophils 0.6 % (0.0-1.0); %Eosinophils 0.9 % (0.0-10.0); %Lymphocytes 24.9 % (21.0-51.0); %Monocytes 7.7 % (0.0-10.0); Hemoglobin 8.8 g/dL (12.0-16.0); Mean Corpuscular HGB CONC 31.7 g/dL (32.0-36.0); Mean Corpuscular Hemoglobin 28.4 pg (27.0-31.0); Mean Corpuscular Volume 89.6 fl (81.0-99.0); Platelet Count 218 thou/uL (130-400); RBC Distribution Width 14.9 % (11.5-14.5); White Blood Cell (WBC) Count 12.3 thou/uL (4.8-10.8)
[2017-09-28 04:52] LABS: ALT (SGPT) 21 U/L (8-55); AST (SGOT) 35 U/L (5-34); Albumin 2.8 g/dL (3.4-4.8); Alkaline Phosphatase 74 U/L (40-150); Anion Gap 10 mmol/L (10-20); BUN (Urea Nitrogen) 33 mg/dL (9.8-20.1); Bilirubin, Total 0.5 mg/dL (0.2-1.2); Calc. Creatinine Clearance 54 mL/min (70-130); Calcium 8.1 mg/dL (7.8-10.44); Carbon Dioxide 22 mmol/L (23-31); Chloride 114 mmol/L (98-107); Estimated GFR-MDRD 33; Globulin 2.8 g/dL (2.4-3.5); Glucose 131 mg/dL (80-115); Potassium 4.6 mmol/L (3.5-5.1); Protein, Total 5.6 g/dL (6.0-8.3); Sodium 141 mmol/L (136-145)
[2017-09-28] MEDS ORDERED: Nitroglycerin 0.4 MG TAB 1 EACH SL PRN (06:54)
[2017-09-28] MEDS ORDERED: Mag-Al 1200 mg/1200 mg/30 ML UDCUP PO PRN (06:54)
[2017-09-28] MEDS ORDERED: Guaifenesin DM 100-10/5 ML UDCUP PO PRN (06:54)
[2017-09-28] MEDS ORDERED: Bisacodyl 10 MG SUPP PR PRN (06:54)
[2017-09-28] MEDS ORDERED: Bisacodyl 5 MG TAB PO PRN (06:54)
[2017-09-28] MEDS ORDERED: Mineral Oil ENEMA PR PRN (06:54)
[2017-09-28] MEDS ORDERED: Milk Of Magnesia 30 ML UDCUP PO PRN (06:54)
[2017-09-28] MEDS ORDERED: Dextrose 5% in Water 1,000 ML IV PRN (07:19)
[2017-09-28] MEDS ORDERED: Dextrose 50% Abboject 50 ML SYRINGE SLOW IVP PRN (07:19)
[2017-09-28] MEDS ORDERED: Potassium Chloride 10 MEQ TAB PO SCH (08:00)
[2017-09-28] MEDS: metFORMIN 500 MG TAB PO SCH ×2 (08:01→16:55)
[2017-09-28] MEDS: Polyethylene Glycol 3350 17 GM Packet PO SCH (08:01)
[2017-09-28] MEDS: glipiZIDE 5 MG TAB PO SCH ×2 (08:01→16:55)
[2017-09-28] MEDS: Famotidine 20 MG TAB PO SCH ×2 (08:01→20:25)
[2017-09-28] MEDS: DULoxetine 30 MG CAP PO SCH (08:01)
[2017-09-28] MEDS: Aspirin 325 mg Enteric Coated Tablet PO SCH (08:01)
[2017-09-28] MEDS: Furosemide 40 MG TAB PO SCH ×2 (08:01→13:24)
[2017-09-28] MEDS: Metoprolol Tartrate 50 MG TAB PO SCH ×2 (08:01→20:26)
--- NOTE | 2017-09-28 08:43 | RAD ---
CHEST ONE VIEW: History: Ventilated patient. Comparison: Prior day. FINDINGS: Patient has been extubated. Right subclavian central venous catheter tip is in the right atrium. Left thoracostomy drainage present. There is a mediastinal drain. There is left basilar atelectasis and layering effusion. IMPRESSION: No significant change in radiographic appearance of the chest. POS: OFF
--- NOTE | 2017-09-28 09:07 | PRG ---
DATE OF SERVICE: 09/28/2017 Ms. Curtis is doing well. No current complaints. She is seen sitting up in a chair. She is status p ost bypass surgery. PHYSICAL EXAMINATION: VITAL SIGNS: Blood pressure 115/69, pulse 93, temperature afebrile. LUNGS: Lungs are clear to auscultation. HEART: Regular rate and rhythm. ABDOMEN: Soft, nontender, nondistended. EXTREMITIES: No edema. GENERAL: Alert and oriented. She is somewhat somnolent. PERTINENT LABORATORY: Hemoglobin 8.8, creatinine 1.6. IMPRESSION: 1. Coronary artery disease. 2. Status post bypass surgery. 3. Non-Q wave myocardial infarction. RECOMMENDATIONS: She is currently on aspirin in addition to metoprolol and Zocor. Continue current therapy as prescribed. Her left ventricular ejection fraction is normal. Incentive spirometry and a mbulation.
--- NOTE | 2017-09-28 12:32 | PRG ---
DATE OF SERVICE: 10/08/2016 SERVICE: Pulmonary Medicine. INTERVAL HISTORY: The patient extubated quite comfortable yesterday. This morning, she can take a d eep breath and she can cough. That being said, it takes significant motivation from her care provide rs in order for her to comply with these maneuvers. She was able to get out of bed into a neuro frankie r today. That being said, she does not have the strength in her lower extremities to easily transiti on out of bed into a chair. As such, I do not think she will be well served by going to the floor to day. Will be very aggressive in the ICU about getting her into a bedside chair. She does not have a ny specific complaints of fevers, chills, nausea or vomiting. She has appropriate chest discomfort f rom her incision. PHYSICAL EXAMINATION: VITAL SIGNS: Afebrile, pulse 75, blood pressure 120/44, respirations 18, saturation 95% on 4 liters nasal cannula. GENERAL: Patient is awake, alert, no apparent distress. LUNGS: Decent air entry. There is no prolonged expiratory phase. Crackles are present. HEART: Normal rate, regular. ABDOMEN: Soft, nontender, and nondistended. Bowel sounds are positive. MUSCULOSKELETAL: No cyanosis or clubbing. There is no pitting in the bilateral lower extremities. NEUROLOGIC: Grossly nonfocal. LABORATORY DATA: WBC 12.3, hemoglobin 8.8, and platelets 218,000. INR 1.2. Creatinine 1.60. This is stable. Basic metabolic profile and liver function studies are unremarkable. Urinalysis is consi stent with urinary tract infection. E. coli is growing out of the urine. Blood culture x2 is unrema rkable. IMAGING: Chest x-ray demonstrates interval removal of the chest tubes. There is no acute cardiopulm onary abnormality otherwise identified. ASSESSMENT: 1. Acute on chronic hypoxic respiratory failure, improving. 2. Acute on chronic diastolic heart failure. 3. Non-ST elevation myocardial infarction. 4. Coronary artery disease, status post coronary artery bypass graft, postoperative day #2. 5. Severe sepsis. 6. Urinary tract infection. 7. Obstructive sleep apnea, suspected. DISCUSSION AND PLAN: The patient is doing really well from a respiratory standpoint. I do not think she will do well on the floor right now because she needs significant motivation in order for her to breathe deep or cough. Furthermore, it takes more than two care providers to get her out of bed and currently she requires neuro chair as she does not have the strength or ability to get into a bedsid e chair. As such, I am going to hold the transition to the floor for 24 hours. If she demonstrates improved strength and willingness to move over the next 24 hours, we will downgrade her to telemetry. She remains at a fairly high risk of developing postop respiratory complications because of her rel ative debility. In the meantime, we will continue supportive care.
[2017-09-28] MEDS: Acetaminophen 325 MG TAB PO PRN ×2 (13:24→20:28)
[2017-09-28] MEDS: traMADol HCl 50 MG TAB PO PRN (19:42)
[2017-09-28] MEDS: Simvastatin 40 MG TAB PO SCH (20:25)
[2017-09-28] MEDS: traZODone HCl 50 MG TAB PO SCH (20:25)
[2017-09-29 04:21] LABS: #Eosinphils 0.6 thou/uL (0.0-0.7); #Lymphocytes 2.2 thou/uL (1.20-3.40); #Neutrophils 10.2 thou/uL (1.40-6.50); %Basophils 0.3 % (0.0-1.0); %Eosinophils 4.2 % (0.0-10.0); %Lymphocytes 15.8 % (21.0-51.0); %Monocytes 6.7 % (0.0-10.0); Hemoglobin 8.9 g/dL (12.0-16.0); Mean Corpuscular HGB CONC 32.6 g/dL (32.0-36.0); Mean Platelet Volume 6.8 fL (7.4-10.4); Platelet Count 277 thou/uL (130-400); RBC Distribution Width 14.8 % (11.5-14.5); Red Blood Cell (RBC) Count 3.06 mill/uL (4.20-5.40)
[2017-09-29 04:32] LABS: Anion Gap 14 mmol/L (10-20); BUN (Urea Nitrogen) 32 mg/dL (9.8-20.1); Calc. Creatinine Clearance 60 mL/min (70-130); Calcium 8.8 mg/dL (7.8-10.44); Carbon Dioxide 22 mmol/L (23-31); Chloride 109 mmol/L (98-107); Estimated GFR-MDRD 37; Glucose 141 mg/dL (80-115); Potassium 4.8 mmol/L (3.5-5.1); Sodium 140 mmol/L (136-145)
[2017-09-29] MEDS: Insulin Regular 300 UNITS/3 ML VIAL SC PRN ×5 (06:20→20:54)
[2017-09-29] MEDS: Acetaminophen 325 MG TAB PO PRN ×2 (06:26→19:29)
[2017-09-29] MEDS: cefTRIAXone\\ROCEPHIN 1 GM in Syringe 10 ML SLOW IVP SCH (06:26)
[2017-09-29] MEDS: Polyethylene Glycol 3350 17 GM Packet PO SCH (08:43)
[2017-09-29] MEDS: Metoprolol Tartrate 50 MG TAB PO SCH ×2 (08:43→20:46)
[2017-09-29] MEDS: Furosemide 40 MG TAB PO SCH ×2 (08:43→13:03)
[2017-09-29] MEDS: DULoxetine 30 MG CAP PO SCH (08:43)
[2017-09-29] MEDS: hydrALAZINE 25 MG TAB PO SCH ×2 (08:43→20:46)
[2017-09-29] MEDS: Aspirin 325 mg Enteric Coated Tablet PO SCH (08:43)
--- NOTE | 2017-09-29 08:43 | PRG ---
DATE OF SERVICE: 09/29/2017 SUBJECTIVE: Ms. Curtis states she had nightmares last evening. She was able to get in chair by herse lf without assistance yesterday. OBJECTIVE: VITAL SIGNS: Blood pressure 152/62, pulse 84, temperature afebrile. LUNGS: Clear to auscultation. HEART: Regular rate and rhythm. ABDOMEN: Soft, nontender, nondistended. EXTREMITIES: No edema. PERTINENT LABORATORY DATA: Hemoglobin 8.9, creatinine 1.42. IMPRESSION: 1. Coronary artery disease. 2. Status post bypass surgery. 3. Limited ambulation. RECOMMENDATIONS: I encourage her to transfer bed to chair with assistance. She is currently on meto prolol at 50 mg 1 p.o. b.i.d. in addition to simvastatin. She is also on aspirin and was continued.
[2017-09-29] MEDS: Famotidine 20 MG TAB PO SCH ×2 (08:44→20:46)
[2017-09-29] MEDS: metFORMIN 500 MG TAB PO SCH ×2 (08:44→16:59)
[2017-09-29] MEDS: glipiZIDE 5 MG TAB PO SCH ×2 (08:44→16:59)
--- NOTE | 2017-09-29 10:12 | PRG ---
DATE OF SERVICE: 09/29/2017 SUBJECTIVE: The patient is sitting up in the chair. She is having pain; however, she did not ask fo r any pain pills. PHYSICAL EXAMINATION: VITAL SIGNS: Stable at 154/70, pulse 70, respirations 18. She is afebrile. NECK: Supple with no increased JVP or carotid bruit. Carotid had good upstroke with no thyromegaly. COR: Regular rate and rhythm. CHEST: Symmetrical. Clear to auscultation and percussion. ABDOMEN: Soft, nontender with normoactive bowel sounds. No bruit or organomegaly. EXTREMITIES: No edema or cyanosis. Palpable pedal pulses. SKIN: There is no evidence of ulcers lesion, or rash. NEUROLOGIC: She is awake, alert, and oriented to person, place, and time. LABORATORY DATA: Her white blood cells 14, H and H 8.9 and 27.9, her platelet 277. Her BUN is 30, c reatinine 1.42. ASSESSMENT: 1. Coronary artery disease, status post AC bypass. 2. Lupus. 3. Hypertension. 4. Anxiety disorder. 5. Postoperative anemia. 6. Mild renal insufficiency. PLAN: We will continue the same current medical regime. She will follow up with a CBC and CMP in th e morning and continue with physical therapy. She will be able to go back to [facility] for therapy o nce she is cleared by all.
--- NOTE | 2017-09-29 12:42 | PRG ---
DATE OF SERVICE: 09/29/2017 SERVICE: Pulmonary Medicine. INTERVAL HISTORY: The patient is doing fine from a cardiovascular and respiratory standpoint. She is breathing very comfortably. Overnight, she got fairly confused. She did not know where she was and what the situation was. On multiple occasions, she may attempt to get out of bed without staff assistance. That being said, she remains extraordinarily weak. She denies any current fevers, chills, or shortness of breath. Otherwise, there has been no interval change to her condition. PHYSICAL EXAMINATION: VITAL SIGNS: Afebrile, pulse 89, blood pressure 154/71, respirations 16, saturation 96% on 2 liters nasal cannula. GENERAL: Patient is awake and alert, in no apparent distress. LUNGS: Decent air entry on the right. There is also good entry on the left. There are some crackles on that side. No prolonged expiratory phase or wheezing is appreciated. There is no rhonchi. HEART: Normal rate, regular. ABDOMEN: Soft, nontender, and nondistended. Bowel sounds are positive. MUSCULOSKELETAL: No cyanosis or clubbing. No pitting in the bilateral lower extremities. NEUROLOGIC: Grossly nonfocal. LABORATORY DATA: WBC is trending to 14.0, hemoglobin 8.9, platelets 277,000. Creatinine 1.42 and finally downtrending slightly. Basic metabolic profile is otherwise unremarkable. Her BUN is 32 and stable. Urine culture is growing E. coli. ASSESSMENT: 1. Acute on chronic hypoxic respiratory failure. 2. Non-ST elevation myocardial infarction. 3. Acute on chronic diastolic heart failure. 4. Coronary artery disease, postop day #3 from coronary artery bypass graft x5 vessels. 5. Severe sepsis. 6. Urinary tract infection. 7. Obstructive sleep apnea, suspected. 8. Delirium. DISCUSSION AND PLAN: The patient is doing fairly well. She can go to the floor , but she will require a sitter. We need to continue making efforts at mobilizing her as much as possible. She is extraordinarily weak and in order for her to recover from this condition, she will need intensive physical therapy. Pulmonary and Critical Care will continue to follow her as she has yet to turn that corner. If the white blood cell count continues to trend up or if she starts having fevers, panculture and empiric antibiotics, directed at lung issues should be considered. IRIS
[2017-09-29] MEDS: Labetalol HCl 100 MG/20 ML VIAL SLOW IVP PRN ×4 (17:30→19:50)
[2017-09-29] MEDS ORDERED: Amlodipine 10 MG TAB PO SCH (19:15)
[2017-09-29] MEDS: Simvastatin 40 MG TAB PO SCH (20:46)
[2017-09-29] MEDS: Ondansetron HCl/PF 4 MG/2 ML Vial IVP PRN (20:50)
[2017-09-30] MEDS: traZODone HCl 50 MG TAB PO SCH ×2 (03:46→21:00)
[2017-09-30] MEDS: Ondansetron HCl/PF 4 MG/2 ML Vial IVP PRN ×2 (03:49→13:59)
[2017-09-30] MEDS: Labetalol HCl 100 MG/20 ML VIAL SLOW IVP PRN (04:01)
[2017-09-30] MEDS ORDERED: Sodium Chloride 0.9% 20 ML ONE (04:01)
[2017-09-30 05:32] LABS: #Eosinphils 0.5 thou/uL (0.0-0.7); #Lymphocytes 2.3 thou/uL (1.20-3.40); #Monocytes 0.7 thou/uL (0.11-0.59); #Neutrophils 8.3 thou/uL (1.40-6.50); %Basophils 0.3 % (0.0-1.0); %Eosinophils 4.3 % (0.0-10.0); %Lymphocytes 19.6 % (21.0-51.0); %Monocytes 6.1 % (0.0-10.0); %Neutrophils 69.7 % (42.0-75.0); Hemoglobin 8.9 g/dL (12.0-16.0); Mean Corpuscular HGB CONC 32.5 g/dL (32.0-36.0); Mean Corpuscular Hemoglobin 28.9 pg (27.0-31.0); Mean Platelet Volume 6.6 fL (7.4-10.4); Platelet Count 269 thou/uL (130-400); RBC Distribution Width 14.9 % (11.5-14.5); Red Blood Cell (RBC) Count 3.09 mill/uL (4.20-5.40); White Blood Cell (WBC) Count 11.9 thou/uL (4.8-10.8)
[2017-09-30 05:46] LABS: ALT (SGPT) 19 U/L (8-55); AST (SGOT) 20 U/L (5-34); Alkaline Phosphatase 107 U/L (40-150); Anion Gap 14 mmol/L (10-20); BUN (Urea Nitrogen) 28 mg/dL (9.8-20.1); Bilirubin, Total 0.6 mg/dL (0.2-1.2); Calc. Creatinine Clearance 68 mL/min (70-130); Carbon Dioxide 25 mmol/L (23-31); Chloride 104 mmol/L (98-107); Estimated GFR-MDRD 43; Globulin 3.5 g/dL (2.4-3.5); Glucose 124 mg/dL (80-115); Potassium 4.1 mmol/L (3.5-5.1); Protein, Total 6.5 g/dL (6.0-8.3); Sodium 139 mmol/L (136-145)
[2017-09-30] MEDS: traMADol HCl 50 MG TAB PO PRN ×3 (07:21→22:28)
[2017-09-30] MEDS: hydrALAZINE 25 MG TAB PO SCH ×4 (07:29→21:03)
[2017-09-30] MEDS: cefTRIAXone\\ROCEPHIN 1 GM in Syringe 10 ML SLOW IVP SCH (07:36)
--- NOTE | 2017-09-30 08:40 | PRG ---
DATE OF SERVICE: 09/30/2017 SUBJECTIVE: Ms. Curtis feels a little better today. Her ambulation is limited. She is being transfe rred from the ICU to telemetry monitoring. OBJECTIVE: VITAL SIGNS: Blood pressure is 173/77, pulse 87, temperature 98.9. LUNGS: Clear to auscultation. HEART: Regular rate and rhythm. ABDOMEN: Soft, nontender, nondistended. EXTREMITIES: No edema. IMPRESSION: 1. Hypertension. 2. Coronary artery disease. 3. Status post bypass surgery. CLINICAL RECOMMENDATIONS: 1. Increase lisinopril 10 mg b.i.d. and change metoprolol to Coreg for better blood pressure managem ent. 2. Physical therapy and incentive spirometry. 3. Rehab.
[2017-09-30] MEDS ORDERED: Lisinopril 10 MG TAB PO SCH ×2 (09:00→21:00)
[2017-09-30] MEDS ORDERED: Lisinopril 5 MG TAB PO SCH (09:00)
[2017-09-30] MEDS: DULoxetine 30 MG CAP PO SCH (09:07)
[2017-09-30] MEDS: Amlodipine 10 MG TAB PO SCH (09:07)
[2017-09-30] MEDS: glipiZIDE 5 MG TAB PO SCH ×2 (09:08→16:25)
[2017-09-30] MEDS: Aspirin 325 mg Enteric Coated Tablet PO SCH (09:09)
[2017-09-30] MEDS: Carvedilol 6.25 MG TAB PO SCH ×2 (09:09→21:01)
[2017-09-30] MEDS: Furosemide 40 MG TAB PO SCH ×2 (09:09→13:58)
[2017-09-30] MEDS: Famotidine 20 MG TAB PO SCH ×2 (09:09→21:01)
[2017-09-30] MEDS: metFORMIN 500 MG TAB PO SCH ×2 (09:09→16:25)
[2017-09-30] MEDS: Polyethylene Glycol 3350 17 GM Packet PO SCH (09:10)
[2017-09-30] MEDS: Lisinopril 20 MG TAB PO SCH ×2 (09:13→21:25)
[2017-09-30] MEDS: Insulin Regular 300 UNITS/3 ML VIAL SC PRN (12:28)
--- NOTE | 2017-09-30 15:07 | PRG ---
DATE OF SERVICE: 09/30/2017 SERVICE: Pulmonary Medicine. INTERVAL HISTORY: The patient is doing okay from a respiratory standpoint. Her oxygen has been wean ed down to room air and her saturations are 92% there. She is extraordinarily weak. She is not real ly moving very much without significant motivation from healthcare providers. OBJECTIVE: VITAL SIGNS: Afebrile, pulse 90, blood pressure 168/72, respirations 19, saturation 97% on 2 liters nasal cannula. On room air, she is 92%. HEENT: Normocephalic, atraumatic. Sclerae are white, conjunctivae pink. Oral and nasal mucosa is m oist without lesions. LUNGS: Decent air entry. There are some crackles present, which are more pronounced in the dependen t region. HEART: Normal rate, regular. ABDOMEN: Soft, nontender, nondistended. Bowel sounds are positive. MUSCULOSKELETAL: No cyanosis or clubbing. There is trace pitting in the bilateral lower extremities . NEUROLOGIC: Grossly nonfocal. LABORATORY DATA: WBC 11.9, platelets 269,000, hemoglobin 8.9 and stable. Creatinine 1.26 and down t rending. Basic metabolic profile and liver function studies are unremarkable. E. coli is growing ou t of the urine culture, which is sensitive to the fluoroquinolones. Blood cultures x2 are unremarkab le. ASSESSMENT: 1. Acute on chronic hypoxic respiratory failure. 2. Non-ST elevation myocardial infarction. 3. Acute on chronic diastolic heart failure. 4. Coronary artery disease, postop day 4 from coronary artery bypass graft x5 vessels. 5. Severe sepsis. 6. Urinary tract infection. 7. Obstructive sleep apnea, suspected. PLAN: We will continue making efforts to mobilize the patient as much as tolerated. Pulmonary Criti iesha Care will continue to follow while she remains in house. Dr. Boles will be available through the weekend if needed. I will continue following on Tuesday. She would benefit from a stay at the [facility].
[2017-09-30] MEDS: Acetaminophen/Codeine 30-300mg Tablet PO PRN (21:02)
[2017-09-30] MEDS: Simvastatin 40 MG TAB PO SCH (21:03)
[2017-10-01] MEDS: Acetaminophen/Codeine 30-300mg Tablet PO PRN (01:05)
[2017-10-01 05:44] LABS: #Eosinphils 0.6 thou/uL (0.0-0.7); #Lymphocytes 3.2 thou/uL (1.20-3.40); #Monocytes 0.7 thou/uL (0.11-0.59); #Neutrophils 5.2 thou/uL (1.40-6.50); %Basophils 0.1 % (0.0-1.0); %Eosinophils 5.8 % (0.0-10.0); %Lymphocytes 32.7 % (21.0-51.0); %Monocytes 7.3 % (0.0-10.0); %Neutrophils 54.1 % (42.0-75.0); Hemoglobin 8.7 g/dL (12.0-16.0); Mean Corpuscular HGB CONC 33.3 g/dL (32.0-36.0); Mean Corpuscular Hemoglobin 29.5 pg (27.0-31.0); Mean Corpuscular Volume 88.7 fl (81.0-99.0); Mean Platelet Volume 6.4 fL (7.4-10.4); Platelet Count 288 thou/uL (130-400); RBC Distribution Width 15.3 % (11.5-14.5); Red Blood Cell (RBC) Count 2.95 mill/uL (4.20-5.40); White Blood Cell (WBC) Count 9.6 thou/uL (4.8-10.8)
[2017-10-01] MEDS: cefTRIAXone\\ROCEPHIN 1 GM in Syringe 10 ML SLOW IVP SCH (05:52)
[2017-10-01 06:14] LABS: Anion Gap 13 mmol/L (10-20); BUN (Urea Nitrogen) 24 mg/dL (9.8-20.1); Calc. Creatinine Clearance 65 mL/min (70-130); Calcium 8.9 mg/dL (7.8-10.44); Carbon Dioxide 26 mmol/L (23-31); Chloride 104 mmol/L (98-107); Estimated GFR-MDRD 43; Glucose 130 mg/dL (80-115); Potassium 3.9 mmol/L (3.5-5.1); Sodium 139 mmol/L (136-145)
[2017-10-01] MEDS: Famotidine 20 MG TAB PO SCH ×2 (08:45→21:36)
[2017-10-01] MEDS: Aspirin 325 mg Enteric Coated Tablet PO SCH (08:45)
[2017-10-01] MEDS: metFORMIN 500 MG TAB PO SCH ×2 (08:45→18:32)
[2017-10-01] MEDS: Polyethylene Glycol 3350 17 GM Packet PO SCH (08:45)
[2017-10-01] MEDS: glipiZIDE 5 MG TAB PO SCH ×2 (08:45→18:32)
[2017-10-01] MEDS: Furosemide 40 MG TAB PO SCH ×2 (08:45→15:13)
[2017-10-01] MEDS: DULoxetine 30 MG CAP PO SCH (08:45)
[2017-10-01] MEDS: Amlodipine 10 MG TAB PO SCH (08:45)
[2017-10-01] MEDS: Lisinopril 20 MG TAB PO SCH ×2 (12:09→21:36)
[2017-10-01] MEDS: hydrALAZINE 25 MG TAB PO SCH ×3 (12:13→21:34)
[2017-10-01] MEDS: Carvedilol 6.25 MG TAB PO SCH ×2 (12:15→21:35)
--- NOTE | 2017-10-01 12:15 | PDOC.CTH ---
Cardiology Progress Note - Subjective No new issues or complaints. Continues to work with PT. - Objective Vital Signs Temp Pulse Resp BP Pulse Ox 10/01/17 11:10 98.5 F 88 16 135/63 95 10/01/17 04:00 97.1 F L 89 20 125/61 98 Admit Weight 203 lb Weight 195 lb 5 oz 09/30/17 10/01/17 10/02/17 06:59 06:59 06:59 Intake Total 900 1200 200 Output Total 300 Balance 600 1200 200 - Physical Examination General/Neuro: alert & oriented x3, NAD Neck: no JVD present Lungs: CTA, unlabored respirations Heart: RRR Abdomen: NT/ND Extremities: + edema B (trace) - Telemetry Telemetry Rhythm: NSR - Labs Result Diagrams: 10/01/17 05:29 10/01/17 05:29 Troponin/CKMB CK-MB (CK-2) 10.9 ng/mL (0-6.6) H* 09/24/17 19:31 Troponin I 4.059 ng/mL (< 0.028) H* 09/25/17 09:56 - Assessment/Plan 1. Multivessel CAD. 2. S/P CABG 3. HTN 4. Deconditioning. PLAN: - Continue Coreg and Lisinopril at current doses, BP better controlled. - Aspirin and statin for life. - Increased PT as tolerated. - Will need Rehab.
[2017-10-01] MEDS: Insulin Regular 300 UNITS/3 ML VIAL SC PRN (12:17)
[2017-10-01] MEDS: Simvastatin 40 MG TAB PO SCH (21:36)
[2017-10-01] MEDS: traZODone HCl 50 MG TAB PO SCH (21:36)
[2017-10-01] MEDS: Acetaminophen 325 MG TAB PO PRN (21:45)
[2017-10-02] MEDS: cefTRIAXone\\ROCEPHIN 1 GM in Syringe 10 ML SLOW IVP SCH (06:39)
[2017-10-02] MEDS ORDERED: Alogliptin 25 MG TAB PO SCH (09:00)
[2017-10-02] MEDS: Polyethylene Glycol 3350 17 GM Packet PO SCH (10:32)
[2017-10-02] MEDS: glipiZIDE 5 MG TAB PO SCH ×2 (10:33→16:04)
[2017-10-02] MEDS: DULoxetine 30 MG CAP PO SCH (10:33)
[2017-10-02] MEDS: Lisinopril 20 MG TAB PO SCH (10:33)
[2017-10-02] MEDS: metFORMIN 500 MG TAB PO SCH ×2 (10:34→16:03)
[2017-10-02] MEDS: Aspirin 325 mg Enteric Coated Tablet PO SCH (10:35)
[2017-10-02] MEDS: hydrALAZINE 25 MG TAB PO SCH ×2 (10:35→15:57)
[2017-10-02] MEDS: Furosemide 40 MG TAB PO SCH ×2 (10:35→14:55)
[2017-10-02] MEDS: Carvedilol 6.25 MG TAB PO SCH (10:36)
[2017-10-02] MEDS: Amlodipine 10 MG TAB PO SCH (10:36)
[2017-10-02] MEDS: Famotidine 20 MG TAB PO SCH (10:37)
--- NOTE | 2017-10-02 14:38 | PDOC.CTH ---
Cardiology Progress Note - Subjective No new issues. She continues to work with PT. - Objective Vital Signs Temp Pulse Resp BP BP Pulse Ox 10/02/17 10:36 92 147/90 H 10/02/17 10:35 92 145/61 H 10/02/17 10:33 141/65 H 10/02/17 03:19 98.9 F 80 18 115/56 L 96 Admit Weight 203 lb Weight 294 lb 10/01/17 10/02/17 10/03/17 06:59 06:59 06:59 Intake Total 1200 1880 Balance 1200 1880 - Physical Examination General/Neuro: alert & oriented x3, NAD Neck: no JVD present Lungs: unlabored respirations Heart: RRR Abdomen: NT/ND Extremities: + edema B (1+) - Telemetry Telemetry Rhythm: NSR - Labs Result Diagrams: 10/01/17 05:29 10/01/17 05:29 Troponin/CKMB CK-MB (CK-2) 10.9 ng/mL (0-6.6) H* 09/24/17 19:31 Troponin I 4.059 ng/mL (< 0.028) H* 09/25/17 09:56 - Assessment/Plan 1. Multivessel CAD. 2. S/P CABG 3. HTN 4. Deconditioning. PLAN: - Continue Coreg and Lisinopril. - Aspirin and statin for life. - Increased PT as tolerated. - To Rehab when room available.
[2017-10-02] MEDS: Insulin Regular 300 UNITS/3 ML VIAL SC PRN (16:14)
[2017-10-02 20:42] VITALS: BP 151/80; TEMP 98.5
[2017-10-02] MEDS ORDERED: Vitami E (Dl,Tocopheryl Acet) 400 UNITS CAP PO SCH (21:00)
--- NOTE | 2017-10-03 02:47 | DIS ---
DATE OF ADMISSION: 09/24/2017 DATE OF DISCHARGE: 10/02/2017 CHIEF COMPLAINT: Shortness of breath. At that time history and physical have been previously dictated and pick pulling machine tender from there. HOSPITAL COURSE: The patient was having an acute SC, so she was placed in a telemetry bed. Aspirin and Lovenox were begun. Cardiology consultation was sought. Dr. Kim saw the patient as well as Dr. Porter in consultation. She went into acute hypoxic respiratory failure. She was found to have chronic diastolic heart failure and healthcare-associated pneumonia was developing. She has severe sepsis and a non-ST elevation SC. Diuresis begun, empiric antibiotics were begun. The patient was seen by Dr. Porter and again confirmed with diagnosis of non-Q-wave SC with systemic lupus. He felt that with her unstable angina and SLE inflammatory disease, she was at risk. Coronary angiography was performed and found to have a 90% stenosis in the mid LAD, 70% stenosis in the distal LAD, and LCX 90% ostial stenosis in the first obtuse marginal, 80% stenosis of the right coronary artery, and only 10% stenosis was noted there. She had severe multivessel disease. Dr. Way was asked to see the patient in consultation, which she did on 09/26/2017. He felt that her severe LAD disease and non-STEMI made her at high risk for difficult prolonged recovery phase, but she did not need bypass surgery. He took her to the OR on 09/26/2017, where she had coronary artery bypass graft x5, postop she was in the ICU, intubated on the ventilator, sedated. Supportive care was maintained on 09/28/2017. She was able to be extubated and by 09/28/2017, sitting up in a chair, doing well, alert, oriented, just sleepy. She was going to be continued on her aspirin in addition to metoprolol and Zocor. Incentive spirometer was begun on that day. She requires significant motivation to do anything physical and it takes 2 care providers to move her out of bed. For this reason, she stayed in ICU and she is at high risk of developing postop respiratory complications, so supportive care was maintained there. It was planned for cardiac rehab at that time. By 09/29/2017, she had been afebrile. Blood pressures were not low enough, so hydralazine was added. Metformin increased and more physical aggressive therapy was begun. By 09/30/2017, had amlodipine and lisinopril to metoprolol to obtain blood pressure rate control. She is complaining of right-sided breast wall chest pain and she would not budge out of bed. Electrolytes and CBC are okay. Aggressive physical therapy was pursued and we increased her blood pressure some more. By 10/01/2017, she was ready for cardiac rehab. Electrolytes good. CBC okay. Chest is clear. Right breast is tender and finally, she was able to be discharged on 10/02/2017 back to [facility] to continue cardiac rehabilitation. Her diagnosis at the time of discharge is (1) coronary artery disease (2) status post coronary artery bypass graft x5, (3) non-Q-wave SC, (4) UTI with Sepsis and (5 ) depression for which she was started on Zoloft in addition to her other medicines. Right breast pain --(6) fibrocystic disease, and vitamin E therapy was begun. She will also need outpatient mammograms. She is discharged in stable condition. She will be maintained on her lisinopril and Zocor alive unless she develops an adverse reaction. She will be followed up at [facility]. Time required to study records, examine pt , [employer] pt, and the dictation was 40 minutes. DISCHARGE MEDICATIONS: Her medications at the time of discharge, the new ones include alogliptin 25 mg daily, hydralazine 50 mg t.i.d., amlodipine 10 mg daily , Coreg 6.25 mg b.i.d. and lisinopril 20 mg b.i.d. [facility]
[2017-10-03 13:23] LABS: Actual Bicarbonate (HCO3a) 24.4 mEq/L (22-26); Base Excess (BEa) -0.4 mEq/L (0 (+/-) 2.5); CO2 Tension 40.6 mmHg (35.0-45.0); Hematocrit-ABG 26.7 % (36.0-47.0); O2 Tension (PaO2) 459.2 mmHg (80.0-100.0)
[2017-10-03 13:24] LABS: Analyzer IN Cardio OR; Calcium, Ionized 1.1 mmol/L (1.12-1.30); Hemoglobin (Hb) 8.3 g/dL (12.0-16.0); Puncture Site ALINE
[2017-10-03 13:24] LABS: pH, Arterial 7.43 (7.35-7.45)
[2017-10-03 13:25] LABS: Actual Bicarbonate (HCO3a) 22.5 mEq/L (22-26); Analyzer IN Cardio OR; Base Excess (BEa) -1.6 mEq/L (0 (+/-) 2.5); Calcium, Ionized 1.1 mmol/L (1.12-1.30); Hematocrit-ABG 23.8 % (36.0-47.0); Hemoglobin (Hb) 7.6 g/dL (12.0-16.0); O2 Tension (PaO2) 386.7 mmHg (80.0-100.0); Puncture Site ALINE
[2017-10-03 13:26] LABS: Actual Bicarbonate (HCO3a) 22.7 mEq/L (22-26); Analyzer IN Cardio OR; Base Excess (BEa) -2.3 mEq/L (0 (+/-) 2.5); CO2 Tension 39.7 mmHg (35.0-45.0); Hematocrit-ABG 18.5 % (36.0-47.0); Hemoglobin (Hb) 6.3 g/dL (12.0-16.0); O2 Tension (PaO2) 456.7 mmHg (80.0-100.0); Puncture Site ALINE; pH, Arterial 7.38 (7.35-7.45)
[2017-10-03 14:19] LABS: Actual Bicarbonate (HCO3v) 24 mEq/L (22-26); Analyzer IN Cardio OR; Base Excess -1.5 mEq/L (0 (+/- 2.5)); pH (venous) 7.33 (7.35-7.45)
[2017-10-03 14:20] LABS: Calcium, Ionized 1.04 mmol/L (1.16-1.32); Chloride (ABG LAB) 104 mmol/L (98-106); Hematocrit-VBG 19.3 % (35-47); Hemoglobin (Hb) 6.5 g/dL (11.7-16.0); Potassium - ABG Lab 4.9 mmol/L (3.70-5.30); Sodium 140.4 mmol/L (133-146)
[2017-10-03 14:20] LABS: Actual Bicarbonate (HCO3a) 22.2 mEq/L (22-26); Base Excess (BEa) -2.8 mEq/L (0 (+/-) 2.5); CO2 Tension 39.3 mmHg (35.0-45.0); pH, Arterial 7.37 (7.35-7.45)
[2017-10-03 14:21] LABS: Analyzer IN Cardio OR; Hematocrit-ABG 21.4 % (36.0-47.0); Hemoglobin (Hb) 7.4 g/dL (12.0-16.0); Puncture Site ALINE
[2017-10-03 14:56] LABS: Actual Bicarbonate (HCO3a) 20.5 mEq/L (22-26); Base Excess (BEa) -3.6 mEq/L (0 (+/-) 2.5); Hematocrit-ABG 21.9 % (36.0-47.0); Hemoglobin (Hb) 7.6 g/dL (12.0-16.0); O2 Tension (PaO2) 314.9 mmHg (80.0-100.0); pH, Arterial 7.41 (7.35-7.45)
[2017-10-03 14:57] LABS: Actual Bicarbonate (HCO3a) 21.1 mEq/L (22-26); Base Excess (BEa) -4.1 mEq/L (0 (+/-) 2.5); CO2 Tension 38.7 mmHg (35.0-45.0); Hematocrit-ABG 25.9 % (36.0-47.0); O2 Tension (PaO2) 281.9 mmHg (80.0-100.0); pH, Arterial 7.35 (7.35-7.45)
[2017-10-03 14:57] LABS: Analyzer IN Cardio OR; Calcium, Ionized 1.1 mmol/L (1.12-1.30); Puncture Site ALINE
[2017-10-03 14:58] LABS: Analyzer IN Cardio OR; Calcium, Ionized 1.1 mmol/L (1.12-1.30); Puncture Site ALINE
== END 2017-10-02 19:30 | disposition home or self-care (01) | DRG 233 ==
LOC: ERS 19:01 → ERHOLD 20:50 → CCU 09-25 00:48 → 2NO 09-29 21:51
PROVIDERS: ADMIT Specialist; ATTEND Specialist
PROC: 02110Z9 Bypass Coronary Artery, Two Arteries from Left Internal Mammary, Open Approach (ICD-10-PCS; principal; 2017-09-26)
PROC: 4A023N7 Measurement of Cardiac Sampling and Pressure, Left Heart, Percutaneous Approach (ICD-10-PCS; 2017-09-26)
PROC: 021209W Bypass Coronary Artery, Three Arteries from Aorta with Autologous Venous Tissue, Open Approach (ICD-10-PCS; 2017-09-26)
PROC: 06BQ4ZZ Excision of Left Saphenous Vein, Percutaneous Endoscopic Approach (ICD-10-PCS; 2017-09-26)
PROC: 03B10ZZ Excision of Left Internal Mammary Artery, Open Approach (ICD-10-PCS; 2017-09-26)
PROC: 5A1221Z Performance of Cardiac Output, Continuous (ICD-10-PCS; 2017-09-26)
PROC: B2111ZZ Fluoroscopy of Multiple Coronary Arteries using Low Osmolar Contrast (ICD-10-PCS; 2017-09-26)
PROC: B2151ZZ Fluoroscopy of Left Heart using Low Osmolar Contrast (ICD-10-PCS; 2017-09-26)
DX: I21.4 Non-ST elevation (NSTEMI) myocardial infarction (principal); A41.9 Sepsis, unspecified organism; R65.20 Severe sepsis without septic shock; J96.21 Acute and chronic respiratory failure with hypoxia; I50.33 Acute on chronic diastolic (congestive) heart failure; I11.0 Hypertensive heart disease with heart failure; J18.9 Pneumonia, unspecified organism; M32.9 Systemic lupus erythematosus, unspecified; N39.0 Urinary tract infection, site not specified; I25.10 Atherosclerotic heart disease of native coronary artery without angina pectoris; F32.9 Major depressive disorder, single episode, unspecified; N60.11 Diffuse cystic mastopathy of right breast; K21.9 Gastro-esophageal reflux disease without esophagitis; E11.9 Type 2 diabetes mellitus without complications; E78.5 Hyperlipidemia, unspecified; E78.1 Pure hyperglyceridemia; M81.0 Age-related osteoporosis without current pathological fracture; Z86.718 Personal history of other venous thrombosis and embolism; Z87.310 Personal history of (healed) osteoporosis fracture; Z88.5 Allergy status to narcotic agent; Z74.01 Bed confinement status; Y95 Nosocomial condition
CPT/HCPCS: 36415; 36416; 36430; 51701; 71045; 76942; 80048; 80053; 81003; 81015; 82553; 82805; 83036; 83605; 83880; 84484; 85014; 85018; 85025; 85610; 85730; 86850; 86900; 86901; 87040; 87077; 87086; 87186; 93005; 93010; 93306; 93458; 93798; 94002; 94003; 94150; 94640; 94660; 96365; 96372; 99152; A4216; A4353; C1769; G8978-GP-CM; G8979-GP-CJ; J0360; J0696; J1265; J1644; J1650; J1815; J1885; J2001; J2060; J2250; J2270; J2405; J2440; J2543; J2720; J3010; J3370; J3475; J3480; J7050; J7620; P9016; P9035; P9045; S0017; S0028

== ENCOUNTER 2017-10-17 21:49 | Observation (INO) | payer MEDICARE, MEDICAID ==
[2017-10-17 22:29] LABS: #Eosinphils 0.4 thou/uL (0.0-0.7); #Lymphocytes 2.9 thou/uL (1.20-3.40); #Monocytes 0.7 thou/uL (0.11-0.59); #Neutrophils 5.1 thou/uL (1.40-6.50); %Basophils 0.1 % (0.0-1.0); %Eosinophils 4.8 % (0.0-10.0); %Lymphocytes 31.7 % (21.0-51.0); %Monocytes 7.7 % (0.0-10.0); %Neutrophils 55.7 % (42.0-75.0); Hemoglobin 9.5 g/dL (12.0-16.0); Mean Corpuscular HGB CONC 31.8 g/dL (32.0-36.0); Mean Corpuscular Volume 88.3 fl (81.0-99.0); Mean Platelet Volume 6.6 fL (7.4-10.4); Platelet Count 413 thou/uL (130-400); White Blood Cell (WBC) Count 9.1 thou/uL (4.8-10.8)
--- NOTE | 2017-10-17 22:30 | RAD ---
CHEST ONE VIEW: History: Chest pain. Comparison: 09-28-17 FINDINGS: Cardiac silhouette is magnified by projection and shifted leftward. Patient is slightly rotated leftw shu. There are post-operative changes in the mediastinum. No lobar consolidation or evidence of pneum othorax. IMPRESSION: Recent post-operative changes of the chest. No active cardiopulmonary abnormalities are demonstrated. POS: [facility]
[2017-10-17 22:35] LABS: INR-International Normal Ratio 1.1; Prothrombin Time 14.3 SEC (12.0-14.7)
[2017-10-17 23:01] LABS: ALT (SGPT) 10 U/L (8-55); AST (SGOT) 15 U/L (5-34); Albumin 3.6 g/dL (3.4-4.8); Alkaline Phosphatase 109 U/L (40-150); Anion Gap 19 mmol/L (10-20); BUN (Urea Nitrogen) 52 mg/dL (9.8-20.1); Bilirubin, Total 0.3 mg/dL (0.2-1.2); CK (CPK) 30 U/L (29-168); Calc. Creatinine Clearance 0 mL/min (70-130); Calcium 10.2 mg/dL (7.8-10.44); Carbon Dioxide 23 mmol/L (23-31); Chloride 101 mmol/L (98-107); Estimated GFR-MDRD 22; Globulin 4.4 g/dL (2.4-3.5); Glucose 175 mg/dL (80-115); Lipase 34 U/L (8-78); Potassium 4.7 mmol/L (3.5-5.1); Sodium 138 mmol/L (136-145)
[2017-10-17 23:05] LABS: Troponin I 0.072 ng/mL (< 0.028)
[2017-10-18] MEDS ORDERED: Enoxaparin Sodium 80 MG/0.8 ML SYRINGE ONE (00:15)
[2017-10-18 01:48] LABS: Troponin I 0.085 ng/mL (< 0.028)
[2017-10-18] MEDS ORDERED: HYDROcodone/Acetaminophen 5/325 mg Tablet PO PRN ×2 (02:57)
[2017-10-18 03:40] VITALS: BMI 30.2
[2017-10-18 05:50] LABS: Troponin I 0.086 ng/mL (< 0.028)
--- NOTE | 2017-10-18 08:49 | HP ---
REASON FOR ADMISSION: Chest pain. HISTORY OF PRESENT ILLNESS: This is a pleasant 62-year-old female who is a resident at [facility] wit h a history of multiple medical problems to include coronary artery disease status post recent bypass in 09/2017 as well as hypertension, IDDM and lupus. She did well after a bypass, was sent to [facility]; however, yesterday began having retrosternal ches t tightness with no associated nausea, vomiting, diaphoresis or shortness of breath. This lasted sev eral hours. The staff became concerned and brought her into the hospital. Currently, she is chest p ain free and appears to be hemodynamically stable, in no acute distress. She denies any PND, orthopn ea or palpitations. She also denies any syncopal or near syncopal episodes. PAST MEDICAL HISTORY: 1. Gastroesophageal reflux disease. 2. Hypertension. 3. Insulin dependent diabetes mellitus. 4. Hyperlipidemia. 5. Osteoporosis. 6. Sciatica. 7. History of chronic urinary tract infection. 8. History of urosepsis. 9. History of DVT of the right thigh in the past. PAST SURGICAL HISTORY: 1. Nasal surgery in the past. 2. Status post hysterectomy. 3. Tubal ligation. 4. Osteoporotic fracture of the back. 5. Nasal surgery for persistent epistaxis. ALLERGIES: CODEINE, HYDROCODONE. MEDICATIONS: Unknown at this time of dictation. FAMILY HISTORY: Noncontributory. SOCIAL HISTORY: She does not smoke, she does not drink alcohol. She lives at [facility]. REVIEW OF SYSTEMS: GENERAL: Admits to weakness, fatigue, no fever or chills. HEENT: No diplopia, amaurosis fugax, tinnitus, sore throat or hoarseness. CARDIOVASCULAR: See history of present illness. PULMONARY: No PE, cough or hemoptysis. GI: No history of GI bleed, does have constipation, no diarrhea. GENITOURINARY: No dysuria, nocturia, oliguria or polyuria. ENDOCRINE: No polyphagia, polydipsia or heat or cold intolerance. MUSCULOSKELETAL: Admits to arthralgias. 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 NEUROLOGIC: No history of transient ischemic attack or seizures. All systems are negative. PHYSICAL EXAMINATION: GENERAL: This is a pleasant female who appears to be in no acute distress. VITAL SIGNS: Her blood pressure is 140/60, pulse 90, respiration 16, she is afebrile. NECK: Supple with no increased JVP or carotid bruit. Carotid had good upstroke with no thyromegaly. COR: Regular rate and rhythm, no murmur, S3. CHEST: Symmetrical. Clear to auscultation and percussion. ABDOMEN: Soft, nontender with normoactive bowel sounds. There is no bruit or organomegaly. EXTREMITIES: No edema or cyanosis. She had palpable pedal pulses. SKIN: There is no evidence of ulcer, lesion or rash. The patient had a midline chest incision well- healed and approximated. Clean, dry and intact. She also had a left lower extremity incision that w as clean, dry, intact, well-approximated and well-healed. NEUROLOGIC: She is awake, alert, and oriented to person, place and time. LABORATORY DATA: CBC showed H&H 9.5 and 30.0, platelets 413, white blood cell 9.1. Her BUN is 52, c reatinine 2.27, glucose 175, troponin 0.072, second was 0.085, third was 0.086. ASSESSMENT: 1. This is a pleasant 62-year-old female with history of multiple medical problems including coronar y artery disease with recent bypass, presents with recurring episodes of chest pain. 2. Renal insufficiency. 3. Diabetes. 4. Hypertension. 5. Hyperlipidemia. 6. Lupus. 7. Multiple medical problems. PLAN: 1. The patient will be kept n.p.o. We will ask Dr. Wahl to see the patient in consultation. Also, begin checking blood sugars a.c. and at bedtime and use sliding scale insulin per protocol. 2. Follow up with lab in the morning. 3. We will begin normal saline at 75 mL an hour for her kidney function. 4. We will find out her home medication and resume accordingly. The patient verbalized understanding and all questions answered to her satisfaction.
[2017-10-18] MEDS ORDERED: Insulin Regular 300 UNITS/3 ML VIAL SC PRN ×2 (08:51)
[2017-10-18] MEDS ORDERED: Dextrose 50% Abboject 50 ML SYRINGE IVP PRN (08:51)
[2017-10-18] MEDS ORDERED: Dextrose 5% in Water 1,000 ML IV PRN (08:51)
[2017-10-18] MEDS: Sodium Chloride 0.9% 1,000 ML IV SCH ×2 (09:35→20:59)
[2017-10-18] MEDS ORDERED: Mag-Al 1200 mg/1200 mg/30 ML UDCUP PO PRN (12:03)
[2017-10-18] MEDS ORDERED: Acetaminophen 325 MG TAB PO PRN (12:06)
[2017-10-18] MEDS ORDERED: Milk Of Magnesia 30 ML UDCUP PO PRN (12:10)
[2017-10-18] MEDS ORDERED: Ondansetron ODT 4 MG TAB PO PRN (12:23)
[2017-10-18] MEDS: hydrALAZINE 25 MG TAB PO SCH ×2 (13:56→20:58)
[2017-10-18] MEDS: Furosemide 40 MG TAB PO SCH (13:59)
[2017-10-18] MEDS: Metamucil PACK PO SCH ×2 (14:05→20:58)
[2017-10-18] MEDS: traMADol HCl 50 MG TAB PO PRN ×2 (16:55→22:51)
[2017-10-18] MEDS: Carvedilol 6.25 MG TAB PO SCH (16:57)
[2017-10-18] MEDS: glipiZIDE 10 MG TAB PO SCH (16:57)
--- NOTE | 2017-10-18 20:01 | CON ---
DATE OF CONSULTATION: 10/18/2017 HISTORY OF PRESENT ILLNESS: The patient is a 62-year-old woman, who presents with left-sided chest discomfort. The patient recently suffered a myocardial infarction. She subsequently underwent coronary artery bypass graft surgery. The patient states that she has subsequently developed left-sided chest discomfort. This is a persistent discomfort is worse whenever she lies down or moves in a certain position. PAST MEDICAL HISTORY: 1. Diabetes mellitus. 2. Hypertension. 3. Hypercholesterolemia. 4. Renal insufficiency. 5. History of lupus. PAST SURGICAL HISTORY: Nasal surgery, tubal ligation, and hysterectomy. ALLERGIES: CODEINE and HYDROCODONE. SOCIAL HISTORY: Nonsmoker. MEDICATIONS: See nursing list. REVIEW OF SYSTEMS: No bright red blood per rectum or hematuria. PHYSICAL EXAMINATION: General: Anxious woman. VITAL SIGNS: Blood pressure 116/60. NECK: No jugular venous distention. LUNGS: Clear to auscultation. HEART: Regular rate and rhythm, normal S1, S2. ABDOMEN: Nondistended. EXTREMITIES: Showed trace edema. NEUROLOGIC: Nonfocal. VASCULAR: Radial pulses 2+. LABORATORY RESULTS: Her sodium was 138, potassium was 4.7, chloride was 101, bicarbonate was 23, BUN was 52, creatinine was 2.27, and glucose was 175. Troponin is 0.072. White blood cell count 9.1, hemoglobin 9.5, hematocrit 30, and platelets 413. Her EKG revealed normal sinus rhythm with T-wave abnormalities suggestive of possible ischemia. IMPRESSION: 1. Chest pain, musculoskeletal. 2. History of coronary bypass graft surgery. 3. Hypertension. 4. Chronic renal insufficiency. 5. Diabetes mellitus. 6. History of lupus. PLAN: This patient presents with atypical chest pain. The discomfort is very suggestive of musculoskeletal discomfort. The patient is being treated with appropriate medication. We will follow this patient with you through her hospitalization. IRIS
[2017-10-18] MEDS: Fish Oil 1,000 MG CAP PO SCH (20:57)
[2017-10-18] MEDS: Atorvastatin Calcium 10 MG TAB PO SCH (20:57)
[2017-10-18] MEDS: Gabapentin 300 MG CAP PO SCH (20:58)
[2017-10-18] MEDS: traZODone HCl 50 MG TAB PO SCH (20:59)
[2017-10-19 04:48] LABS: #Eosinphils 0.4 thou/uL (0.0-0.7); #Lymphocytes 2.3 thou/uL (1.20-3.40); #Monocytes 0.6 thou/uL (0.11-0.59); #Neutrophils 4.1 thou/uL (1.40-6.50); %Basophils 0.3 % (0.0-1.0); %Eosinophils 5.6 % (0.0-10.0); %Lymphocytes 31.3 % (21.0-51.0); %Monocytes 7.5 % (0.0-10.0); %Neutrophils 55.3 % (42.0-75.0); Hemoglobin 8.6 g/dL (12.0-16.0); Mean Corpuscular HGB CONC 32.9 g/dL (32.0-36.0); Mean Corpuscular Hemoglobin 29.4 pg (27.0-31.0); Mean Corpuscular Volume 89.3 fl (81.0-99.0); Mean Platelet Volume 6.8 fL (7.4-10.4); Platelet Count 319 thou/uL (130-400); RBC Distribution Width 13.8 % (11.5-14.5); Red Blood Cell (RBC) Count 2.91 mill/uL (4.20-5.40); White Blood Cell (WBC) Count 7.3 thou/uL (4.8-10.8)
[2017-10-19 04:57] LABS: ALT (SGPT) 11 U/L (8-55); AST (SGOT) 17 U/L (5-34); Albumin 3.2 g/dL (3.4-4.8); Alkaline Phosphatase 100 U/L (40-150); Anion Gap 12 mmol/L (10-20); BUN (Urea Nitrogen) 39 mg/dL (9.8-20.1); Bilirubin, Total 0.2 mg/dL (0.2-1.2); Calc. Creatinine Clearance 51 mL/min (70-130); Calcium 9.4 mg/dL (7.8-10.44); Carbon Dioxide 25 mmol/L (23-31); Chloride 105 mmol/L (98-107); Estimated GFR-MDRD 33; Globulin 3.9 g/dL (2.4-3.5); Glucose 117 mg/dL (80-115); Protein, Total 7.1 g/dL (6.0-8.3); Sodium 137 mmol/L (136-145)
[2017-10-19] MEDS: Multivit, Therapeutic 1 TAB PO SCH (08:30)
[2017-10-19] MEDS: Vitami E (Dl,Tocopheryl Acet) 400 UNITS CAP PO SCH (08:30)
[2017-10-19] MEDS: Fish Oil 1,000 MG CAP PO SCH ×2 (08:31→20:48)
[2017-10-19] MEDS: Loratadine 10 MG TAB PO SCH (08:31)
[2017-10-19] MEDS: Furosemide 40 MG TAB PO SCH ×2 (08:31→14:58)
[2017-10-19] MEDS: metFORMIN 500 MG TAB PO SCH (08:32)
[2017-10-19] MEDS: Carvedilol 6.25 MG TAB PO SCH ×2 (08:32→17:07)
[2017-10-19] MEDS: DULoxetine 30 MG CAP PO SCH (08:33)
[2017-10-19] MEDS: Alogliptin 6.25 MG TAB PO SCH (08:33)
[2017-10-19] MEDS: hydrALAZINE 25 MG TAB PO SCH ×3 (08:33→20:54)
[2017-10-19] MEDS: Aspirin 325 mg Enteric Coated Tablet PO SCH (08:33)
[2017-10-19] MEDS: glipiZIDE 10 MG TAB PO SCH ×2 (08:33→17:57)
[2017-10-19] MEDS: Lisinopril 20 MG TAB PO SCH (08:33)
[2017-10-19] MEDS: Amlodipine 10 MG TAB PO SCH (08:34)
[2017-10-19] MEDS: Gabapentin 300 MG CAP PO SCH ×2 (08:34→20:48)
[2017-10-19] MEDS: Folic Acid 1 MG TAB PO SCH (08:34)
[2017-10-19] MEDS: Polyethylene Glycol 3350 17 GM Packet PO SCH (08:36)
[2017-10-19] MEDS: Metamucil PACK PO SCH ×3 (08:36→20:49)
[2017-10-19] MEDS ORDERED: ALPHA LIPOIC ACID 200 MG PO SCH (09:00)
--- NOTE | 2017-10-19 09:13 | PRG ---
DATE OF SERVICE: 10/19/2017 Ms. Curtis recently was admitted for decreased ambulation in addition to chest pain. Her chest pain i s worse with deep breath, sharp and constant. She states her symptoms have slightly improved. PHYSICAL EXAMINATION: VITAL SIGNS: 125/59, pulse 80, temperature afebrile. LUNGS: Clear to auscultation. CARDIAC: Regular rate and rhythm. ABDOMEN: Soft, nontender, nondistended. EXTREMITIES: No edema. PERTINENT LABORATORY DATA: Hemoglobin 8.6, creatinine 1.57. IMPRESSION: 1. Atypical chest pain. 2. Coronary artery disease. 3. Status post bypass surgery. 4. Recent non-Q-wave myocardial infarction. 5. Limited ambulation. RECOMMENDATIONS: At this time these symptoms are likely related to a recent surgery and likely muscu loskeletal in origin. Reassurance provided. Would continue conservative therapy. Ambulation is of utmost importance. I have discussed this with Ms. Curtis. Would continue tramadol. Avoid nonsteroid al therapy due to creatinine.
[2017-10-19] MEDS ORDERED: Gabapentin 300 MG CAP PO SCH ×2 (10:30→11:00)
[2017-10-19] MEDS: traMADol HCl 50 MG TAB PO PRN ×2 (10:44→17:06)
[2017-10-19] MEDS: Acetaminophen 325 MG TAB PO SCH ×2 (12:03→17:06)
[2017-10-19] MEDS: Atorvastatin Calcium 10 MG TAB PO SCH (20:48)
[2017-10-19] MEDS: traZODone HCl 50 MG TAB PO SCH (20:49)
[2017-10-20] MEDS: Acetaminophen 325 MG TAB PO SCH ×2 (00:59→06:02)
[2017-10-20] MEDS: Alogliptin 6.25 MG TAB PO SCH (08:24)
[2017-10-20] MEDS: Aspirin 325 mg Enteric Coated Tablet PO SCH (08:25)
[2017-10-20] MEDS: Gabapentin 300 MG CAP PO SCH (08:25)
[2017-10-20] MEDS: Amlodipine 10 MG TAB PO SCH (08:25)
[2017-10-20] MEDS: Furosemide 40 MG TAB PO SCH (08:25)
[2017-10-20] MEDS: hydrALAZINE 25 MG TAB PO SCH (08:25)
[2017-10-20] MEDS: Vitami E (Dl,Tocopheryl Acet) 400 UNITS CAP PO SCH (08:25)
[2017-10-20] MEDS: metFORMIN 500 MG TAB PO SCH (08:25)
[2017-10-20] MEDS: Folic Acid 1 MG TAB PO SCH (08:26)
[2017-10-20] MEDS: Polyethylene Glycol 3350 17 GM Packet PO SCH ×2 (08:26→08:34)
[2017-10-20] MEDS: Loratadine 10 MG TAB PO SCH (08:26)
[2017-10-20] MEDS: Lisinopril 20 MG TAB PO SCH (08:26)
[2017-10-20] MEDS: Multivit, Therapeutic 1 TAB PO SCH (08:26)
[2017-10-20] MEDS: Carvedilol 6.25 MG TAB PO SCH (08:26)
[2017-10-20] MEDS: glipiZIDE 10 MG TAB PO SCH (08:26)
[2017-10-20] MEDS: Fish Oil 1,000 MG CAP PO SCH (08:26)
[2017-10-20] MEDS: DULoxetine 30 MG CAP PO SCH (08:26)
[2017-10-20] MEDS: Metamucil PACK PO SCH ×2 (08:27→08:33)
[2017-10-20 12:05] VITALS: BP 109/57; TEMP 98.2
--- NOTE | 2017-10-20 12:18 | DIS ---
FINAL DIAGNOSES: 1. Atypical chest pain. 2. Coronary artery disease, status post bypass. 3. Lupus. 4. Hypertension. 5. Hyperlipidemia. 6. Anxiety. COMPLICATIONS: None. PROCEDURES: None. CONSULTANTS: Dr. Hackett. HOSPITAL COURSE: This is a pleasant female who is a resident at [facility], did have bypass and did v fady well, went back to [facility] for rehab began having chest pressure. She was sent to the hospital for further evaluation and treatment. MD was ruled out by serial cardiac enzymes. Her CBC showed H &H of 9.5 and 30.0, platelet was 413, white blood cell was 9.1. Her CMP showed glucose of 150. She was seen by Cardiology, Dr. Hackett, who agreed with musculoskeletal. Her medication was adjusted a ccordingly. The patient had no more chest pain. Her vital signs were stable. She got up out of bed . Her hospital course was unremarkable. She was sent back to [facility] on 10/20/2014 in stable cond ition. DISCHARGE MEDICATIONS: 1. Tylenol p.r.n. 2. Alogliptin 25 mg every day. 3. Alpha-lipoic acid 200 mg every day. 4. Maalox p.r.n. 5. Norvasc 10 mg every day. 6. Aspirin 325 mg every day. 7. Tums p.r.n. 8. Coreg 6.25 mg b.i.d. 9. Catapres 0.1 mg b.i.d. 10. Cymbalta 30 mg every day. 11. Nexium 40 mg every day. 12. Folic acid 1 mg every day. 13. Lasix 40 mg b.i.d. 14. Neurontin 300 mg b.i.d. 15. Glucotrol 10 mg every day. 16. Hydralazine 50 mg t.i.d. 17. Lisinopril 20 mg b.i.d. 18. Claritin 10 mg every day. 19. Milk of Magnesia p.r.n. 20. Metformin 1000 mg every day. 21. Multivitamin every day. 22. [place] 3 every day. 23. Zofran 4 mg q.4-6 hours p.r.n. 24. MiraLax daily. 25. Fiber therapy t.i.d. 26. Seroquel 50 mg every day. 27. Zoloft 50 mg every day. 28. Zocor 20 mg every day. 29. Trazodone 100 mg every day. Her diet would be a controlled fat diet. Her activity would have physical therapy and occupational t herapy working with her and Dr. Lopez would be the attending.
--- NOTE | 2017-10-22 14:30 | EKG ---
Test Reason : CHEST PAIN Blood Pressure : / mmHG Vent. Rate : 097 BPM Atrial Rate : 097 BPM P-R Int : 138 ms QRS Dur : 084 ms QT Int : 356 ms P-R-T Axes : 067 022 109 degrees QTc Int : 452 ms Normal sinus rhythm Abnormal ECG Confirmed by JOHN HENNESSY, ELY ([id number]), non linear editor GABBY THOMPSON ([id number]) on 10/22/2017 2:30:34 PM Referred By: AGUS LOPEZ Confirmed By:ELY LOPEZ MD
== END 2017-10-20 11:52 ==
LOC: ERS 21:49 → 2NO 10-18 01:43
PROVIDERS: ADMIT Specialist; ATTEND Specialist
DX: R07.89 Other chest pain (principal); I25.10 Atherosclerotic heart disease of native coronary artery without angina pectoris; M32.9 Systemic lupus erythematosus, unspecified; E78.5 Hyperlipidemia, unspecified; F41.9 Anxiety disorder, unspecified; K21.9 Gastro-esophageal reflux disease without esophagitis; M81.0 Age-related osteoporosis without current pathological fracture; M54.30 Sciatica, unspecified side; E78.00 Pure hypercholesterolemia, unspecified; E11.22 Type 2 diabetes mellitus with diabetic chronic kidney disease; I12.9 Hypertensive chronic kidney disease with stage 1 through stage 4 chronic kidney disease, or unspecified chronic kidney disease; N18.9 Chronic kidney disease, unspecified; I21.4 Non-ST elevation (NSTEMI) myocardial infarction; Z79.82 Long term (current) use of aspirin; Z79.84 Long term (current) use of oral hypoglycemic drugs; Z79.899 Other long term (current) drug therapy; Z88.5 Allergy status to narcotic agent; Z98.51 Tubal ligation status; Z95.1 Presence of aortocoronary bypass graft; Z90.710 Acquired absence of both cervix and uterus; Z98.890 Other specified postprocedural states; Z87.310 Personal history of (healed) osteoporosis fracture; Z87.440 Personal history of urinary (tract) infections; Z86.718 Personal history of other venous thrombosis and embolism
CPT/HCPCS: 71045; 80053 ×2; 82550; 82553; 82962 ×3; 83690; 83880; 84484 ×3; 85025 ×2; 85610; 85730; 93005; 96361; 96372; 96374; 97139 ×3; 97530; 99285; G0378 ×2; G8978; G8979; 36415; 36416; A4216; J1650; J2270; Q0162

== ENCOUNTER 2018-01-26 11:21 | Emergency (ER) | payer MEDICARE, OTHER ==
--- NOTE | 2018-01-26 12:04 | RAD ---
CHEST 1 VIEW: Date: 01/26/18 HISTORY: Chest pain. COMPARISON: 10/17/17. FINDINGS: Cardiac silhouette magnified and upper limits of normal in size. Pulmonary vasculature unremarkable. Mediastinum midline with postoperative changes. No lobar consolidation or evidence of pneumothorax. IMPRESSION: No active cardiopulmonary abnormalities are demonstrated. POS: H
[2018-01-26 12:05] LABS: Bilirubin Negative (Negative); Blood, Urine Negative (Negative); Clarity CLOUDY (Clear); Glucose, Urine (Dipstick) 250 mg/dL (Negative); Leukocyte Moderate (Negative); Nitrite Positive (Negative); Protein, Urine (Dipstick) 100 mg/dL (Neg-Trace); Specific Gravity, Urine 1.018 (1.002-1.036); Urobilinogen 0.2 mg/dL (0.2-1.0)
[2018-01-26 12:07] LABS: Pathc Cast-AUWi Flag 2.03 (0-2.49); RBC/HPF 0-3 HPF (0-3); Squamous Epithelial 0-3 HPF (0-3); WBC/HPF 21-50 HPF (0-3)
[2018-01-26 12:16] LABS: Bacteria/HPF 4+ HPF (None Seen); Hyaline Casts/LPF NONE SEEN LPF (0-3 Hyaline)
[2018-01-26 12:52] LABS: CKMB 1.5 ng/mL (0-6.6); Troponin I 0.023 ng/mL (< 0.028)
[2018-01-26 13:08] LABS: ALT (SGPT) 10 U/L (8-55); AST (SGOT) 16 U/L (5-34); Albumin 3.8 g/dL (3.4-4.8); Alkaline Phosphatase 85 U/L (40-150); Anion Gap 14 mmol/L (10-20); BUN (Urea Nitrogen) 36 mg/dL (9.8-20.1); Bilirubin, Total 0.2 mg/dL (0.2-1.2); Calc. Creatinine Clearance 0 mL/min (70-130); Calcium 9.4 mg/dL (7.8-10.44); Carbon Dioxide 24 mmol/L (23-31); Chloride 105 mmol/L (98-107); Estimated GFR-MDRD 39; Globulin 3.6 g/dL (2.4-3.5); Glucose 186 mg/dL (80-115); Protein, Total 7.4 g/dL (6.0-8.3); Sodium 137 mmol/L (136-145)
[2018-01-26] MEDS ORDERED: cefTRIAXone\\ROCEPHIN 1 GM VIAL ONE (13:54)
== END 2018-01-26 15:41 | disposition home or self-care (01) ==
LOC: ERS 11:21
DX: N30.00 Acute cystitis without hematuria (principal); K21.9 Gastro-esophageal reflux disease without esophagitis; I10 Essential (primary) hypertension; E78.5 Hyperlipidemia, unspecified; F41.9 Anxiety disorder, unspecified; F32.9 Major depressive disorder, single episode, unspecified; E11.40 Type 2 diabetes mellitus with diabetic neuropathy, unspecified; I25.2 Old myocardial infarction; Z79.4 Long term (current) use of insulin; Z79.899 Other long term (current) drug therapy
CPT/HCPCS: 36415; 51701; 71045; 80053; 81003; 81015; 82553; 84484; 87040; 87077; 87086; 87186; 93005; 96361; 96365; A4353; J0696

== ENCOUNTER 2018-02-14 01:04 | Emergency (ER) | payer MEDICARE, OTHER ==
[2018-02-14 01:49] LABS: #Eosinphils 0.3 thou/uL (0.0-0.7); #Lymphocytes 2.2 thou/uL (1.20-3.40); #Monocytes 0.4 thou/uL (0.11-0.59); #Neutrophils 6.4 thou/uL (1.40-6.50); %Basophils 0.4 % (0.0-1.0); %Eosinophils 3.5 % (0.0-10.0); %Lymphocytes 23.3 % (21.0-51.0); %Monocytes 3.9 % (0.0-10.0); %Neutrophils 68.9 % (42.0-75.0); Hemoglobin 10.6 g/dL (12.0-16.0); Mean Corpuscular HGB CONC 33.9 g/dL (32.0-36.0); Mean Corpuscular Hemoglobin 27.7 pg (27.0-31.0); Mean Corpuscular Volume 81.8 fL (78.0-98.0); Mean Platelet Volume 5.8 fL (7.4-10.4); Platelet Count 318 thou/uL (130-400); RBC Distribution Width 15.1 % (11.5-14.5); Red Blood Cell (RBC) Count 3.82 mill/uL (4.20-5.40); White Blood Cell (WBC) Count 9.2 thou/uL (4.8-10.8)
[2018-02-14 02:12] LABS: ALT (SGPT) 10 U/L (8-55); AST (SGOT) 15 U/L (5-34); Albumin 3.9 g/dL (3.4-4.8); Alkaline Phosphatase 104 U/L (40-150); Anion Gap 15 mmol/L (10-20); BUN (Urea Nitrogen) 27 mg/dL (9.8-20.1); Bilirubin, Total 0.5 mg/dL (0.2-1.2); Calc. Creatinine Clearance 0 mL/min (70-130); Calcium 9.9 mg/dL (7.8-10.44); Carbon Dioxide 24 mmol/L (23-31); Chloride 105 mmol/L (98-107); Estimated GFR-MDRD 37; Globulin 4.2 g/dL (2.4-3.5); Glucose 135 mg/dL (80-115); Potassium 5.3 mmol/L (3.5-5.1); Protein, Total 8.1 g/dL (6.0-8.3); Sodium 139 mmol/L (136-145)
[2018-02-14 02:14] LABS: Bilirubin Negative (Negative); Blood, Urine Trace (Negative); Clarity CLOUDY (Clear); Glucose, Urine (Dipstick) Negative (Negative); Leukocyte Large (Negative); Nitrite Negative (Negative); Protein, Urine (Dipstick) 300 mg/dL (Neg-Trace); Specific Gravity, Urine 1.013 (1.002-1.036); Urobilinogen 0.2 mg/dL (0.2-1.0)
[2018-02-14 02:15] LABS: CKMB 1.3 ng/mL (0-6.6); Troponin I 0.024 ng/mL (< 0.028)
[2018-02-14 02:16] LABS: Bacteria/HPF 1+ HPF (None Seen); Hyaline Casts/LPF 0-3 HYALINE CAST LPF (0-3 Hyaline); Pathc Cast-AUWi Flag 0.58 (0-2.49); Squamous Epithelial None Seen HPF (0-3)
[2018-02-14] MEDS ORDERED: Promethazine HCl 25 MG/ML VIAL ONE (03:20)
[2018-02-14] MEDS ORDERED: cefTRIAXone\\ROCEPHIN 1 GM VIAL ONE (03:20)
--- NOTE | 2018-02-18 12:51 | EKG ---
Test Reason : Blood Pressure : / mmHG Vent. Rate : 074 BPM Atrial Rate : 074 BPM P-R Int : 136 ms QRS Dur : 080 ms QT Int : 400 ms P-R-T Axes : 073 018 120 degrees QTc Int : 444 ms Normal sinus rhythm Abnormal ECG Confirmed by TWYLA SCHOFIELD ([id number]), magazine editor GABBY THOMPSON ([id number]) on 02/18/2018 12:51:06 PM Referred By: MD SCHOFIELD Confirmed By:TWYLA SCHOFIELD
== END 2018-02-14 04:55 | disposition home or self-care (01) ==
LOC: ERS 01:04
DX: E86.0 Dehydration (principal); N39.0 Urinary tract infection, site not specified; K21.9 Gastro-esophageal reflux disease without esophagitis; I10 Essential (primary) hypertension; E11.40 Type 2 diabetes mellitus with diabetic neuropathy, unspecified; M32.9 Systemic lupus erythematosus, unspecified; M81.0 Age-related osteoporosis without current pathological fracture; F32.9 Major depressive disorder, single episode, unspecified; F41.9 Anxiety disorder, unspecified; Z79.82 Long term (current) use of aspirin; Z79.84 Long term (current) use of oral hypoglycemic drugs; Z79.899 Other long term (current) drug therapy
CPT/HCPCS: 36415; 51701; 80053; 81003; 81015; 82553; 83605; 84484; 85025; 87077; 87086; 87186; 93005; 96361; 96365; 96375; A4353; J0696; J2550

== ENCOUNTER 2018-02-15 15:09 | Outpatient (CLI) | payer MEDICARE, MEDICAID | END 2018-02-15 15:10 | disposition home or self-care (01) | LOC: BICMAMMO 15:09 | PROVIDERS: ATTEND Internal Medicine | DX: Z12.31 Encounter for screening mammogram for malignant neoplasm of breast (principal); N95.9 Unspecified menopausal and perimenopausal disorder; M81.0 Age-related osteoporosis without current pathological fracture | CPT/HCPCS: 77063; 77067; 77080 ==

== ENCOUNTER 2018-03-10 08:52 | Outpatient (CLI) | payer MEDICARE, MEDICAID ==
[2018-03-10] MEDS ORDERED: Gadobenate Dimeglumine 529 MG/1 ML (20ML VIAL) ONE (14:46)
== END 2018-03-10 08:53 | disposition home or self-care (01) ==
LOC: BICMRI 08:52
PROVIDERS: ATTEND Neurological Surgery
DX: M47.22 Other spondylosis with radiculopathy, cervical region (principal); M54.16 Radiculopathy, lumbar region; M48.061 Spinal stenosis, lumbar region without neurogenic claudication; Z98.890 Other specified postprocedural states
CPT/HCPCS: 72020; 72100; 72141; 72158; 82565; A9579